=== PATIENT | female | born 1965 | race Caucasian/White ===

== ENCOUNTER 2016-05-07 09:32 | Day surgery (SDC) | payer MEDICAID, OTHER ==
[2016-05-06 11:51] VITALS: BMI 36.3
[2016-05-07] VITALS (8 sets, daily range): BP systolic 116–168; BP diastolic 70–96; PULSE 65–78; RESP 12–19; Ht 157.5 cm; Wt 92.3 kg
[~2016-05-07] VITALS: Ht 157.5 cm; Wt 92.3 kg
[~2016-05-07 09:32] MED LIST: ABCC1C PO; FERRIC SUBSULFATE 8 GM VIAL TOP ONE; LIDOCAINE 1%/EPI 30 ML INJ INJ ONE; ONDA4TAB35 PO
[2016-05-07] MEDS ORDERED: METO-429 PO (10:40)
[2016-05-07 11:42] LABS: BASOPHILS % 0.3 % (0.0-2.0); EOSINOPHILS # 0.2 10^3/ul (0.0-0.5); HEMATOCRIT 39.2 % (37.0-47.0); HEMOGLOBIN 12.9 g/dl (12.0-16.0); LYMPHOCYTES # 2.4 10^3/ul (0.8-2.9); LYMPHOCYTES % 28.8 % (15.0-51.0); MEAN CORPUSCULAR HEMOGLOBIN 26.9 pg (29.0-33.0); MEAN CORPUSCULAR HGB CONC 32.9 g/dl (32.0-37.0); MEAN CORPUSCULAR VOLUME 81.7 fl (82.0-101.0); MEAN PLATELET VOLUME 8.7 fl (7.4-10.4); MONOCYTE # 0.4 10^3/ul (0.3-0.9); MONOCYTES % 5.4 % (0.0-11.0); NEUTROPHIL # 5.3 10^3/ul (1.6-7.5); NEUTROPHILS % 63.5 % (39.0-77.0); PLATELET COUNT 314 10^3/UL (140-440); RED CELL DISTRIBUTION WIDTH 13.2 % (11.5-14.5); UNCORRECTED WBC 8.3 10^3/ul (4.8-10.8); WHITE BLOOD COUNT 8.3 10^3/ul (4.8-10.8)
[2016-05-07 11:47] LABS: CONDITION 1; LH ANALYZER COMMENTS 1
[2016-05-07 11:53] LABS: ALBUMIN/GLOBULIN RATIO 1.29; BILIRUBIN,INDIRECT 0.2 mg/dl (0-1.1); BILIRUBIN,TOTAL 0.2 mg/dl (0.2-1.3); CREATININE 0.64 mg/dl (0.44-1.00); TOTAL PROTEIN 7.1 g/dl (6.1-8.1)
[2016-05-07 12:01] LABS: CALCIUM 8.9 mg/dl (8.4-10.2)
[2016-05-07] MEDS ORDERED: LIDOCAINE 1%/EPI 30 ML INJ ONE (12:43)
[2016-05-07] MEDS ORDERED: LIDOCAINE 1% (STERILE-PAK) 30 ML INJ ONE ×2 (12:44→14:24)
--- NOTE | 2016-05-07 12:48 | PREOPHP ---
DATE OF ADMISSION: 05/07/2016 HISTORY OF PRESENT ILLNESS: A 51-year-old female with history of cervical dysplasia. PAST MEDICAL HISTORY: Hypertension and breast cancer. PAST SURGICAL HISTORY: section, mastectomy. ALLERGIES: NO KNOWN ALLERGIES. FAMILY HISTORY: Diabetes and hypertension. PHYSICAL EXAMINATION: VITAL SIGNS: The patient is afebrile. Vital signs stable. HEAD, NECK AND CHEST: Within normal limits. ABDOMEN: Soft, nontender, nondistended. PELVIC: Normal. EXTREMITIES: Within normal limits. NEUROLOGIC: Within normal limits. IMPRESSION: Cervical dysplasia. PLAN: Loop electrosurgical excision procedure. Risks, benefits and alternatives of the procedure w ere explained to the patient. The patient said she understood and gave informed consent for this pr ocedure. Dictated By: LUCERO NOBLE/THIERRY Conf#: [id number] DID#: [id number]
[2016-05-07] MEDS ORDERED: FENTAnyl 50 MCG/ML VIAL ONE (13:06)
[2016-05-07] MEDS ORDERED: FERRIC SUBSULFATE 8 GM VIAL TOP SCH (13:30)
[2016-05-07] MEDS ORDERED: LIDOCAINE 2% (SDV) 5 ML INJ ONE (14:03)
[2016-05-07] MEDS ORDERED: PROPOFOL 40 ML ONE (14:03)
[2016-05-07] MEDS ORDERED: SUCCINYLCHOLINE CHLORIDE 100 MG/5 ML SYG IV ONE (14:03)
--- NOTE | 2016-05-07 14:22 | OPR ---
DATE OF OPERATION: 05/07/2016 PREOPERATIVE DIAGNOSIS: Moderate cervical dysplasia. POSTOPERATIVE DIAGNOSIS: Moderate cervical dysplasia. OPERATION PERFORMED: Loop electrosurgical excision procedure. SURGEON: Dr. Guillen ANESTHESIA: General. ANESTHESIOLOGIST: Dr. Sean Obregon PROCEDURE: The patient was taken to the operating room and placed on the operating table in supine position. After adequate general anesthesia was given, the area was prepared and draped. The patie nt was placed in dorsal lithotomy position. The area was prepared and draped in the usual sterile f ashion. Speculum was placed inside the vagina. Using a solution of lidocaine with epinephrine, the cervix was injected. Using a semicircular loop, a portion of the upper cervix and lower cervix wer e excised and sent to pathology. A ball tip Bovie was used to cauterize the small bleeders. Surgic el soaked in Monsel solution was applied to the site. Adequate hemostasis was assured. The patient tolerated the procedure well. Patient was awakened from anesthesia and transferred to recovery in stable condition. ESTIMATED BLOOD LOSS: Minimal. COUNTS: All counts were correct. Dictated By: LUECRO NOBLE/THIERRY Conf#: [id number] DID#: [id number]
[2016-05-07] MEDS ORDERED: DIPHENHYDRAMINE 50 MG INJ IV PRN (14:30)
[2016-05-07] MEDS ORDERED: FENTAnyl 50 MCG/ML VIAL IV PRN ×2 (14:30)
[2016-05-07] MEDS ORDERED: MEPERIDINE 25 MG INJ IV PRN (14:30)
[2016-05-07] MEDS ORDERED: HYDROmorphONE (0.2 MG/ML) 10ML SYG IV PRN ×3 (14:30)
--- NOTE | 2016-05-08 15:55 | RADRPT ---
Vent Rate: 59 bpm RR Interval: 0 msec UT Interval: 142 msec QRS Duration: 82 msec QT Interval: 424 msec QTC Interval: 419 msec P-R-T [place]: 43 - 32 - 44 degrees Sinus bradycardia Abnormal ECG Electronically Signed By: Brendon Magana [id number]
== END 2016-05-07 17:15 | disposition home or self-care (01) ==
LOC: SDS 09:32
PROVIDERS: ATTEND Obstetrics & Gynecology
DX: N87.1 Moderate cervical dysplasia (principal); I10 Essential (primary) hypertension; E78.5 Hyperlipidemia, unspecified; E66.01 Morbid (severe) obesity due to excess calories; Z68.37 Body mass index [BMI] 37.0-37.9, adult; Z85.3 Personal history of malignant neoplasm of breast; Z83.3 Family history of diabetes mellitus; Z82.49 Family history of ischemic heart disease and other diseases of the circulatory system
CPT/HCPCS: 57522; 80053; 84703; 85025; 86850; 86900; 86901; 88305; 93005; J0330; J3010; Z7512; Z7610

== ENCOUNTER 2016-08-22 05:48 | Inpatient (IN) | payer OTHER ==
[2016-08-21 15:04] VITALS: BMI 37.1
[2016-08-22] VITALS (23 sets, daily range): BP systolic 96–145; BP diastolic 59–75; PULSE 56–97; RESP 12–18; Ht 157.5 cm; Wt 90.5 kg
[~2016-08-22] VITALS: Ht 157.5 cm; Wt 90.5 kg
[~2016-08-22 05:48] MED LIST changes: -ABCC1C PO; -FERRIC SUBSULFATE 8 GM VIAL TOP ONE; -LIDOCAINE 1%/EPI 30 ML INJ INJ ONE; +METO-429 PO; +NOL20 PO; -ONDA4TAB35 PO
[2016-08-22] MEDS ORDERED: CEFAZOLIN 2 GM/50 ML (PMX) 50 ML IVPB ONE (06:00)
[2016-08-22] MEDS ORDERED: metroNIDAZOLE 500 MG/NS (PMX) 100 ML IVPB ONE (06:00)
[2016-08-22] MEDS ORDERED: D5-NS + KCL 20 MEQ 1,000 ML IV ONE (06:00)
[2016-08-22] MEDS ORDERED: CEFAZOLIN 1 GM INJ ONE (07:00)
[2016-08-22] MEDS ORDERED: metroNIDAZOLE 500 MG/100 ML NS IVPB ONE (07:00)
[2016-08-22] MEDS ORDERED: THROMBIN 5000 UNIT VIAL ONE (07:07)
[2016-08-22] MEDS ORDERED: VASOPRESSIN 20 UNITS INJ ONE (07:07)
[2016-08-22] MEDS ORDERED: METHYLENE BLUE 1% 10 ML INJ ONE (07:07)
[2016-08-22] MEDS ORDERED: PROPOFOL 20 ML ONE (07:42)
[2016-08-22] MEDS ORDERED: NEOSTIGMINE 3 MG/3 ML SYRINGE ONE ×2 (07:42→07:47)
[2016-08-22] MEDS ORDERED: LIDOCAINE 2% (SDV) 5 ML INJ ONE (07:42)
[2016-08-22] MEDS ORDERED: SUCCINYLCHOLINE CHLORIDE 100 MG/5 ML SYG IV ONE (07:42)
[2016-08-22] MEDS ORDERED: GLYCOPYRROLATE 0.4 MG INJ ONE ×3 (07:42→07:47)
[2016-08-22] MEDS ORDERED: ROCURONIUM 50 MG INJ ONE ×2 (07:42→09:19)
[2016-08-22] MEDS ORDERED: morphine SULFATE/PF (10 MG/10 ML) INJ ONE (07:46)
[2016-08-22] MEDS ORDERED: METOCLOPRAMIDE 10 MG INJ ONE (07:47)
[2016-08-22] MEDS ORDERED: ONDANSETRON 4 MG INJ ONE (07:47)
--- NOTE | 2016-08-22 08:13 | HP ---
Date/Time of Note Date/Time of Note DATE: 08/22/16 TIME: 08:13 Assessment/Plan VTE Prophylaxis VTE Prophylaxis Intervention: SCD's Lines/Catheters [facility] Peripheral IV HPI/ROS Admit Date/Time Admit Date/Time Aug 22, 2016 at 05:48 Hx of Present Illness Marilee Tolbert M.D. [facility] History and Physical Examination Mikki Leblanc August 18, 2016 Age:51 :1965 Physicians: Pattern Marking Supervisor Enrollment Nurse: Frank Guillen History of the Present Illness: This is a 51 year old female with an abnormal PAP with HGSIL and a hx breast cancer. Past Medical History: Surgical: Breast cancer, [facility]: NA Medications: 07/18/16 metoprolol tartrate 50 mg tablet 1 tablet by mouth BID 07/18/16 tamoxifen 20 mg tablet 1 tablet by mouth DAILY gardisil Allergies: No active allergies recorded Family History: Noncontributory Social History: Noncontributory Colonoscopy Review of Systems: Negative except for above noted Physical Examination Vitals (07/18/2016): Weight 202, Height 61.75, BP 120/80, BMI 38.2. General: Alert. HEENT: Pupils are equal, round, reactive to light and accommodation. Neck: Supple with no masses of lymphadenopathy. Breast: Deferred due to recent examination and responsibility of primary care physician. Chest: Clear to auscultation and percussion with no rales, ronchi, or wheeze. Heart: Normal rhythm with no murmur. Abdomen: no masses nor organomeglay Pelvis: On coloposcopy no gross cancer although cx flat/confluent with vagina ( due to cone), uterus minimally enlarged and globular, no mass. Rectal: confirmatory with pelvic exam. Neurological: Grossly intact Assessment: JUNE II-III with anatomy precluding LEEP or cone Plan:Laparoscopic Type 2 Hysterectomy, Bilateral Salpingo-Oophorectomy, Sentinal Lymphnode Dissection. All risks and benefits of this procedure have been discussed in detail with the patient, as well as alternative treatment strategies and their implications. The patient is aware that there is some possibility of a blood transfusion and its associated risks and benefits. She wishes to proceed and gives her informed consent. Marilee Tolbert M.D. PMH/Family/Social Social History Smoking Status: Former smoker Exam/Review of Systems Vital Signs Vitals Vital Signs Date Time Temp Pulse Resp B/P Pulse Ox O2 Delivery O2 Flow Rate FiO2 08/22/16 07:34 98.3 61 16 135/74 98 Medications Medications Current Medications Potassium Chloride/Dextrose/ Sod Cl (D5-NS + KCl 20 Meq) 1,000 ml @ 100 mls/hr Q10H ONCE IV ; Start 08/22/16 at 06:00; Stop 08/22/16 at 15:59 MARILEE TOLBERT MD Aug 22, 2016 08:13
--- NOTE | 2016-08-22 08:14 | HPN ---
Date/Time of Note Date/Time of Note DATE: 08/22/16 TIME: 08:14 Interval H&P Admission Note Pt. seen H&P reviewed: No system changes MARILEE TOLBERT MD Aug 22, 2016 08:14
[2016-08-22] MEDS ORDERED: CEFAZOLIN 1 GM in SOD CHLORIDE 0.9% 100 ML IVPB SCH (08:30)
[2016-08-22] MEDS ORDERED: ONDANSETRON 4 MG INJ IV PRN ×2 (09:00→13:00)
[2016-08-22] MEDS ORDERED: morphine 10 MG INJ IM PRN (09:00)
[2016-08-22] MEDS ORDERED: POTASSIUM CHLORIDE 20 MEQ in LACTATED RINGER'S 1,000 ML IV SCH (09:30)
[2016-08-22] MEDS ORDERED: hydrALAzine 20 MG INJ ONE (09:32)
[2016-08-22] MEDS ORDERED: FENTAnyl 50 MCG/ML VIAL ONE (12:46)
[2016-08-22 12:56] LABS: ADD UMIC YES; URINE BILIRUBIN (Dip) NEGATIVE (NEGATIVE); URINE BLOOD (Dip) 3+ (NEGATIVE); URINE COLOR LT. RED (YELLOW); URINE GLUCOSE (Dip) NEGATIVE (NEGATIVE); URINE KETONES (Dip) 15 (NEGATIVE); URINE LEUKOCYTE ESTERASE (Dip) NEGATIVE (NEGATIVE); URINE NITRITE (Dip) NEGATIVE (NEGATIVE); URINE TOTAL PROTEIN (Dip) 2+ (NEGATIVE); URINE UROBILINOGEN (Dip) 0.2 E.U./dL (0.1-1.0)
[2016-08-22] MEDS ORDERED: EPHEDrine SULFATE 50 MG/5 ML SYG IV PRN (13:00)
[2016-08-22] MEDS ORDERED: KETOROLAC 30 MG INJ IV PRN (13:00)
[2016-08-22] MEDS ORDERED: FENTAnyl 50 MCG/ML VIAL IV PRN (13:00)
[2016-08-22] MEDS ORDERED: morphine 2 MG INJ IV PRN ×2 (13:00)
[2016-08-22] MEDS ORDERED: DIPHENHYDRAMINE 50 MG INJ IV PRN (13:00)
[2016-08-22] MEDS ORDERED: morphine SULFATE/PF (10 MG/10 ML) INJ SPINAL ONE (13:00)
[2016-08-22] MEDS ORDERED: NALOXONE (0.4 MG/ML) INJ IV PRN (13:00)
[2016-08-22] MEDS ORDERED: HYDROmorphONE 1 MG/ML SYG IV PRN ×2 (13:00)
[2016-08-22] MEDS: FENTAnyl 50 MCG/ML VIAL IV PRN ×2 (13:19→13:47)
[2016-08-22 13:23] LABS: BACTERIA,URINE FEW; URINE RBCS >200 /HPF (0)
[2016-08-22] MEDS: CEFAZOLIN 1 GM/50 ML (PMX) 50 ML IVPB SCH ×3 (16:30→23:54)
--- NOTE | 2016-08-22 18:42 | CONS ---
DATE OF ADMISSION: 08/22/2016 DATE OF CONSULTATION: 08/22/2016 CHIEF COMPLAINT AND HISTORY OF PRESENT ILLNESS: The patient is a 51-year-old female with a history of hypertension, breast cancer, cervical dysphagia status post LEEP procedure back in 04/[address] Belkis Guillen. The patient subsequently was referred to Dr. Hawkins for further evaluation. Patient w as brought into the hospital today and underwent laparoscopic hysterectomy and bilateral salpingo-oo phorectomy and sentinel lymph node dissection. Patient does have some postoperative pain. The sheryl ent's postoperative pain is being controlled with IV Toradol and IV morphine. The patient denies an y chest pain or shortness of breath. The patient remains awake, alert, and is moving all extremitie s. No vomiting since admission. REVIEW OF SYSTEMS: Negative except for postoperative pain. PAST SURGICAL HISTORY: Patient is status post mastectomy. Patient also status post , LEEP procedure and today she underwent a laparoscopic hysterectomy and bilateral salpingo-oophorectomy. ALLERGIES: NONE. MEDICATIONS PRIOR TO ADMISSION: The patient was on: 1. Tamoxifen. 2. Metoprolol. FAMILY HISTORY: The patient's maternal grandmother as well as a maternal aunt and cousin, all of th em have ovarian cancer, details not available. PHYSICAL EXAMINATION: GENERAL: The patient is conscious, awake, alert. VITAL SIGNS: Temperature 97.5, pulse 65, respirations 18, blood pressure 135/84, O2 saturation 100% on 2 liters nasal cannula. HEENT: No eye discharge or redness. Extraocular movement intact. Oropharynx clear. NECK: No mass. CHEST: Fairly clear. CARDIOVASCULAR: S1, S2 normal. No murmur. ABDOMEN: The patient is status post surgery. EXTREMITIES: No edema. Pedal pulses palpable. SKIN: Without acute rash. NEUROLOGIC: The patient is awake, alert, fairly oriented with no gross focal deficit. ____ examinat ion was deferred due to recent surgery. LABORATORY DATA: Urine test negative. WBC 7.2, hemoglobin 12.7, platelet 278. Sodium 14 1, potassium 4.4, BUN 8, creatinine 0.6, glucose 103. Coagulation profile normal. IMPRESSION: 1. Cervical dysplasia. 2. 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 3. Hypertension. 4. History of breast cancer. PLAN: Patient admitted on medical floor. Patient will be started on clear liquid diet and will con tinue with IV cefazolin as per protocol. Continue postoperative pain control, IV fluids and will us e SCD for DVT prophylaxis, will resume home medication. Plan of care discussed with the patient's f venkaty. Dictated By: LM MENJIVAR/THIERRY Conf#: [id number] DID#: [id number]
[2016-08-22] MEDS: METOPROLOL 50 MG TAB PO SCH (20:56)
[2016-08-22] MEDS: TAMOXIFEN 10 MG TAB PO SCH (21:40)
[2016-08-23 00:01] VITALS: BP 106/59; PULSE 78; RESP 18
[2016-08-23 06:12] LABS: ADD SCAN DIFF NO
[2016-08-23 06:18] LABS: BASOPHILS % 0.2 % (0.0-2.0); EOSINOPHILS # 0.1 10^3/ul (0.0-0.5); EOSINOPHILS % 1.1 % (0.0-7.0); HEMATOCRIT 33.1 % (37.0-47.0); HEMOGLOBIN 10.4 g/dl (12.0-16.0); LYMPHOCYTES # 2.8 10^3/ul (0.8-2.9); LYMPHOCYTES % 31.6 % (15.0-51.0); MEAN CORPUSCULAR HEMOGLOBIN 25.9 pg (29.0-33.0); MEAN CORPUSCULAR HGB CONC 31.4 g/dl (32.0-37.0); MEAN CORPUSCULAR VOLUME 82.5 fl (82.0-101.0); MEAN PLATELET VOLUME 10.6 fl (7.4-10.4); MONOCYTE # 0.6 10^3/ul (0.3-0.9); MONOCYTES % 6.5 % (0.0-11.0); NEUTROPHIL # 5.3 10^3/ul (1.6-7.5); NEUTROPHILS % 60.3 % (39.0-77.0); PLATELET COUNT 200 10^3/UL (140-415); RED BLOOD COUNT 4.01 10^6/ul (4.20-5.40); RED CELL DISTRIBUTION WIDTH 14.1 % (11.5-14.5); WHITE BLOOD COUNT 8.8 10^3/ul (4.8-10.8)
[2016-08-23 06:47] LABS: CALCIUM 7.9 mg/dl (8.4-10.2); CREATININE 0.73 mg/dl (0.44-1.00); POTASSIUM 4.1 mmol/L (3.5-5.1)
[2016-08-23 08:21] VITALS: BP 97/59; RESP 18
[2016-08-23] MEDS: METOPROLOL 50 MG TAB PO SCH (08:24)
[2016-08-23 08:25] VITALS: BP 93/66; PULSE 68
[2016-08-23] MEDS ORDERED: TAMOXIFEN 10 MG TAB PO SCH (09:00)
--- NOTE | 2016-08-23 17:24 | PN ---
Date/Time of Note Date/Time of Note DATE: 08/23/16 TIME: 17:20 Assessment/Plan VTE Prophylaxis VTE Prophylaxis Intervention: SCD's Lines/Catheters IV Catheter Type (from Nrs): Saline Lock Urinary Cath still in place: Yes Reason Cath still needed: urinary retention Assessment/Plan Chief Complaint/Hosp Course Patient denies any nausea vomiting, still complains of postoperative pain, borderline hypotension, parameters for metoprolol given Problems: Assessment/Plan 1. Cervical dysplasia. 2. 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 Continue Ultram and morphine as needed for pain. Follow-up surgical recommendations. Incentive spirometer every hour while awake. 3. Hypertension. Patient is currently hypotensive. 4. History of breast cancer. Further recommendations based on clinical course. Plan of care discussed with Dr. Malik. Exam/Review of Systems Vital Signs Vitals Vital Signs Date Time Temp Pulse Resp B/P Pulse Ox O2 Delivery O2 Flow Rate FiO2 08/23/16 08:25 68 93/66 08/23/16 08:21 98.9 18 96 08/23/16 00:01 Room Air 08/22/16 19:00 2.0 Intake and Output 08/22/16 08/22/16 08/23/16 14:59 22:59 06:59 Intake Total 3100 ml 530 ml 1350 ml Output Total 700 ml 1200 ml 2600 ml Balance 2400 ml -670 ml -1250 ml Exam Constitutional: alert, oriented Head: atraumatic, normocephalic Neck: supple Respiratory: clear to auscultation Cardiovascular: nl pulses Genitourinary - Female: other (This post surgery) Extremities: normal pulses Results Result Diagram: 08/23/16 0530 08/23/16 0535 Results 24 hrs Laboratory Tests Test 08/23/16 05:30 08/23/16 05:35 08/23/16 05:37 White Blood Count 8.8 Red Blood Count 4.01 L Hemoglobin 10.4 L Hematocrit 33.1 L Mean Corpuscular Volume 82.5 Mean Corpuscular Hemoglobin 25.9 L Mean Corpuscular Hemoglobin Concent 31.4 L Red Cell Distribution Width 14.1 Platelet Count 200 Mean Platelet Volume 10.6 #H Neutrophils % 60.3 Lymphocytes % 31.6 Monocytes % 6.5 Eosinophils % 1.1 Basophils % 0.2 Nucleated Red Blood Cells % 0.0 Neutrophils # 5.3 Lymphocytes # 2.8 Monocytes # 0.6 Eosinophils # 0.1 Basophils # 0.0 Nucleated Red Blood Cells # 0.0 Sodium Level 143 Potassium Level 4.1 Chloride Level 111 H Carbon Dioxide Level 26 Anion Gap 10 Blood Urea Nitrogen 4 L Creatinine 0.73 Glucose Level 121 Calcium Level 7.9 L Lab Scanned Report REFERENCE LAB Medications Medications Current Medications Ondansetron HCl (Zofran Inj) 4 mg Q6H PRN IV NAUSEA AND/OR VOMITING; Start 08/22 at 09:00 Tramadol HCl (Ultram) 50 mg Q6H PRN PO PAIN; Start 08/22/16 at 09:00 Morphine Sulfate (morphine) 2 mg Q4H PRN IM pain; Start 08/22/16 at 09:00 Tamoxifen Citrate (Nolvadex) 20 mg HS PO Last administered on 08/22/16t 21:40; Admin Dose 20 MG; Start 08/22/16 at 21:00 Metoprolol Tartrate (Lopressor) 25 mg BID PO ; Start 08/23/16 at 21:00 CHIOMA LAGUERRE Aug 23, 2016 17:24
[2016-08-23] MEDS: traMADol 50 MG TAB PO PRN (17:52)
[2016-08-23 20:14] VITALS: BP 132/70; RESP 20
[2016-08-23] MEDS: METOPROLOL 25 MG TAB PO SCH (21:01)
[2016-08-23] MEDS: TAMOXIFEN 10 MG TAB PO SCH (21:08)
[2016-08-24] MEDS: traMADol 50 MG TAB PO PRN ×2 (05:51→16:55)
[2016-08-24 06:06] LABS: ADD SCAN DIFF NO
[2016-08-24 06:27] LABS: BASOPHILS % 0.3 % (0.0-2.0); EOSINOPHILS # 0.4 10^3/ul (0.0-0.5); EOSINOPHILS % 4.7 % (0.0-7.0); HEMATOCRIT 34.4 % (37.0-47.0); HEMOGLOBIN 10.9 g/dl (12.0-16.0); LYMPHOCYTES # 2.7 10^3/ul (0.8-2.9); MEAN CORPUSCULAR HEMOGLOBIN 25.9 pg (29.0-33.0); MEAN CORPUSCULAR HGB CONC 31.7 g/dl (32.0-37.0); MEAN CORPUSCULAR VOLUME 81.7 fl (82.0-101.0); MEAN PLATELET VOLUME 10.2 fl (7.4-10.4); MONOCYTE # 0.5 10^3/ul (0.3-0.9); MONOCYTES % 6.4 % (0.0-11.0); NEUTROPHIL # 3.8 10^3/ul (1.6-7.5); NEUTROPHILS % 51.3 % (39.0-77.0); PLATELET COUNT 198 10^3/UL (140-415); RED BLOOD COUNT 4.21 10^6/ul (4.20-5.40); RED CELL DISTRIBUTION WIDTH 14.1 % (11.5-14.5); WHITE BLOOD COUNT 7.4 10^3/ul (4.8-10.8)
[2016-08-24 07:19] LABS: CREATININE 0.72 mg/dl (0.44-1.00); POTASSIUM 3.5 mmol/L (3.5-5.1)
[2016-08-24 07:26] VITALS: BP 118/64; RESP 18
[2016-08-24] MEDS: METOPROLOL 25 MG TAB PO SCH (08:18)
--- NOTE | 2016-08-24 11:36 | PN ---
Date/Time of Note Date/Time of Note DATE: 08/24/16 TIME: 11:36 Assessment/Plan VTE Prophylaxis VTE Prophylaxis Intervention: other Lines/Catheters IV Catheter Type (from Nrs): Saline Lock Urinary Cath still in place: Yes Reason Cath still needed: skin wounds contaminated by urine Assessment/Plan Chief Complaint/Hosp Course 1. Cervical dysplasia. 2. 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 Continue Ultram and morphine as needed for pain. Follow-up surgical recommendations. Incentive spirometer every hour while awake. 3. Hypertension. Patient is currently hypotensive. 4. History of breast cancer. Problems: Subjective 24 Hr Interval Summary Free Text/Dictation Patient has no complaints Exam/Review of Systems Vital Signs Vitals Vital Signs Date Time Temp Pulse Resp B/P Pulse Ox O2 Delivery O2 Flow Rate FiO2 08/24/16 07:26 98.5 77 18 118/64 97 08/23/16 00:01 Room Air 08/22/16 19:00 2.0 Intake and Output 08/23/16 08/23/16 08/24/16 15:00 23:00 07:00 Intake Total 1360 ml 360 ml Output Total 1100 ml 1260 ml Balance 260 ml -900 ml Exam Constitutional: well developed Head: atraumatic, normocephalic Neck: supple Respiratory: clear to auscultation Cardiovascular: regular rate and rhythm Gastrointestinal: soft, tender Extremities: normal pulses Results Result Diagram: 08/24/16 0544 08/24/16 0544 Results 24 hrs Laboratory Tests Test 08/24/16 05:44 White Blood Count 7.4 Red Blood Count 4.21 Hemoglobin 10.9 L Hematocrit 34.4 L Mean Corpuscular Volume 81.7 L Mean Corpuscular Hemoglobin 25.9 L Mean Corpuscular Hemoglobin Concent 31.7 L Red Cell Distribution Width 14.1 Platelet Count 198 Mean Platelet Volume 10.2 Neutrophils % 51.3 Lymphocytes % 37.0 Monocytes % 6.4 Eosinophils % 4.7 Basophils % 0.3 Nucleated Red Blood Cells % 0.0 Neutrophils # 3.8 Lymphocytes # 2.7 Monocytes # 0.5 Eosinophils # 0.4 Basophils # 0.0 Nucleated Red Blood Cells # 0.0 Sodium Level 145 H Potassium Level 3.5 Chloride Level 112 H Carbon Dioxide Level 27 Anion Gap 10 Blood Urea Nitrogen 5 L Creatinine 0.72 Glucose Level 91 Calcium Level 8.0 L Medications Medications Current Medications Ondansetron HCl (Zofran Inj) 4 mg Q6H PRN IV NAUSEA AND/OR VOMITING Last administered on 08/24/16 09:51; Admin Dose 4 MG; Start 08/22/16 at 09:00 Tramadol HCl (Ultram) 50 mg Q6H PRN PO PAIN Last administered on 08/24/16 05: 51; Admin Dose 50 MG; Start 08/22/16 at 09:00 Morphine Sulfate (morphine) 2 mg Q4H PRN IM pain Last administered on 08:15; Admin Dose 2 MG; Start 08/22/16 at 09:00 Tamoxifen Citrate (Nolvadex) 20 mg HS PO Last administered on 08/23/16 21:08; Admin Dose 20 MG; Start 08/22/16 at 21:00 Metoprolol Tartrate (Lopressor) 25 mg BID PO Last administered on 08/24/16 08: 18; Admin Dose 25 MG; Start 08/23/16 at 21:00 ABI MAI Aug 24, 2016 11:36
--- NOTE | 2016-08-24 14:47 | PN ---
Date/Time of Note Date/Time of Note DATE: 08/24/16 TIME: 14:44 Assessment/Plan VTE Prophylaxis VTE Prophylaxis Intervention: SCD's Lines/Catheters IV Catheter Type (from Nrs): Saline Lock Urinary Cath still in place: Yes Reason Cath still needed: urinary retention Assessment/Plan Chief Complaint/Hosp Course cervical JUNE III and endometrial hyperplasia Problems: Assessment/Plan A- doing well P- possible discharge today Subjective 24 Hr Interval Summary Free Text/Dictation + flatus and less pain. Exam/Review of Systems Vital Signs Vitals Vital Signs Date Time Temp Pulse Resp B/P Pulse Ox O2 Delivery O2 Flow Rate FiO2 08/24/16 07:26 98.5 77 18 118/64 97 08/23/16 00:01 Room Air 08/22/16 19:00 2.0 Intake and Output 08/23/16 08/23/16 08/24/16 15:00 23:00 07:00 Intake Total 1360 ml 360 ml Output Total 1100 ml 1260 ml Balance 260 ml -900 ml Exam Resp -clear CVS- NSR And- soft nt and clean Ext- NT no edema Results Result Diagram: 08/24/16 0544 08/24/16 0544 Results 24 hrs Laboratory Tests Test 08/24/16 05:44 White Blood Count 7.4 Red Blood Count 4.21 Hemoglobin 10.9 L Hematocrit 34.4 L Mean Corpuscular Volume 81.7 L Mean Corpuscular Hemoglobin 25.9 L Mean Corpuscular Hemoglobin Concent 31.7 L Red Cell Distribution Width 14.1 Platelet Count 198 Mean Platelet Volume 10.2 Neutrophils % 51.3 Lymphocytes % 37.0 Monocytes % 6.4 Eosinophils % 4.7 Basophils % 0.3 Nucleated Red Blood Cells % 0.0 Neutrophils # 3.8 Lymphocytes # 2.7 Monocytes # 0.5 Eosinophils # 0.4 Basophils # 0.0 Nucleated Red Blood Cells # 0.0 Sodium Level 145 H Potassium Level 3.5 Chloride Level 112 H Carbon Dioxide Level 27 Anion Gap 10 Blood Urea Nitrogen 5 L Creatinine 0.72 Glucose Level 91 Calcium Level 8.0 L Medications Medications Current Medications Ondansetron HCl (Zofran Inj) 4 mg Q6H PRN IV NAUSEA AND/OR VOMITING Last administered on 08/24/16t 09:51; Admin Dose 4 MG; Start 08/22/16 at 09:00 Tramadol HCl (Ultram) 50 mg Q6H PRN PO PAIN Last administered on 08/24/16 05: 51; Admin Dose 50 MG; Start 08/22/16 at 09:00 Tamoxifen Citrate (Nolvadex) 20 mg HS PO Last administered on 08/23/16 21:08; Admin Dose 20 MG; Start 08/22/16 at 21:00 Metoprolol Tartrate (Lopressor) 25 mg BID PO Last administered on 08/24/16 08: 18; Admin Dose 25 MG; Start 08/23/16 at 21:00 MARILEE TOLBERT MD Aug 24, 2016 14:47
--- NOTE | 2016-08-25 18:08 | OPR ---
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 Laparoscopic Type 2 Hysterectomy / Bilateral salpingoophorectomy 2. [place]/selective pelvic lymph node dissection 3. Cystoscopy with bilateral stenting 4. Ureteral dissection and ureterolysis Surgeon: Dr. Hawkins Assemblies And Installations Inspector: FAHEEM Leonard Anesthesia: General with regional Indications for Procedure; The patient is a 51- year old female with PMB and pain who had a prior cone with a preinvasive finding. She the had repeat JUNE III with a positive ECC and a repeat LEEP was not anatomically possible. Hence after considering all options with risks and benefits the Laparoscopic Type 2 Hysterectomy with Bilateral salpingoophorectomy with sentinel/selective LND was selected. Summary of Procedure: The patient was laparoscoped with the finding of some adhesions and the adnexia densely adherent to the sidewalls and some fibroids and probable endometriosis. The Laparoscopic Type 2 Hysterectomy with Bilateral salpingoophorectomy with Name: Mikki Leblanc Medical sentinel/selective LND was completed with negative findings on frozen section. Due to the probable endometriosis a ureteral dissection with repositioning was needed and due to the extent of scar tissue both were stented prophylactically. Findings and Procedure: After being prepped and draped in the usual manner a EEA sizer and pneumo- occluder was inserted vaginally after which a 5-millimeter trocar was placed cephlad to the umbilicus without incident. Subsequently, we insufflated and placed two 5- millimeter trocars laterally and a 12-millimeter trocar suprapubically. At this time, the 0-degree 5-millimeter laparoscopic was secured and manipulated with a Scope manipulator and any pelvic adhesions were lysed with sharp dissection. The uterus was manipulated with a previously placed EEA sizer and fan retractor. There was no apparent extra-uterine disease. A baby-lap was placed and a ratcheted endo-grasper was inserted via the suprapubic trocar and used to manipulate the uterus while being secured with a Erich-arm, after which the right round ligament was transected with a Thunderbeat. The bladder flap was then developed with a Gyrus bipolar cutting forceps instrument as well as Omni and blunt dissection. The retroperitoneal area was opened with the Omni parallel to the IP-ligament and the ureter was identified. Due to both unusual scarring with a suggestion of severe pelvic endometriosis and inflammation from a prior procedure and the uterine enlargement as well as the need to isolate the uterine artery the ureter was dissected with the Omni and lateralized, after which normal peristalsis was observed. Of note, the aforementioned inflammation as well as adnexia adherent to the sidewall necessitated that the ureteral dissection with repositioning being more extensive than anticipated but this was completed without incident. After repositioning the ureter laterally away from the peritoneum, the tereso-rectal and tereso-vessicle space was developed bluntly, after which a space was applied to the right broad ligament and the right IP-ligament was cauterized and transected with the Thunderbeat and Omni. We then repositioned the uterus with the ratcheted endo-grasper and with a Erich arm. With both the aforementioned ureter identified and traced out the uterine vessels were thoroughly dissected separately identified, clipped multiple areas, and cut. The ureter was then tunneled through the parametria with an endo dissector, and the Name: [facility] parametrial pedicle cauterized remote from the ureters and transected with the Thunderbeat. An identical procedure was used to transect the uterosacral ligaments an appropriate distance from the cervix with the Omni and Thunderbeat. Any bleeding areas were addressed with additional cautery using the the Omni. The bladder pillar was then dissected and clipped and desiccated and transected, after which the ureters was confirmed to be undamaged. At this time the uterine positioning adjusted with the ratcheted endo -grasper and secured with the lower Erich-arm and the contralateral retroperitoneal area opened with the Omni and the adjacent round ligament cauterized and transected with the Gyrus bipolar cutting forceps. The retroperitoneal space was opened with the Omni and extended. The retroperitoneal area was further opened with the Omni parallel to the IP- ligament and the ureter was identified. Due to similar scarring and inflammation from the prior procedure as noted contralaterally with hypervascularity as well as uterine enlargement and the need to isolate the uterine artery the ureter was dissected with the Omni and lateralized, after which normal peristalsis was observed. Of note, the aforementioned inflammation as well as adnexia adherent to the sidewall with a suggestion of dense adhesions due to old endometriosis necessitated that the ureteral dissection with repositioning be more extensive than anticipated but this was completed without incident. After repositioning the ureter laterally away from the peritoneum, the tereso-rectal and tereso-vessicle space was developed bluntly, after which a space was applied to the left broad ligament and the left IP- ligament was cauterized and transected with the Thunderbeat. We then repositioned the uterus with the ratcheted endo-grasper with a Erich Arm retractor. With both the aforementioned ureter identified and traced out the left uterine vessels were thoroughly dissected separately identified, clipped multiple areas, and cut. The ureter was then tunneled through the parametria with an endo dissector, and the parametrial pedicle cauterized remote from the ureters and transected with the Omni and Thunderbeat. An identical procedure was used to transect the uterosacral ligaments an appropriate distance from the with the Omni. Any bleeding areas were addressed with additional cautery using the Omni. The bladder pillar was then dissected and clipped and desiccated and transected as done contralaterally, after which the ureters was confirmed to be undamaged. Subsequently, additional Name: [facility] paravaginal tissue was transected with the Omni and the uterus and cervix from the vagina by using a Thunderbeat and Omni along the edge of the EEA sizer. Colpotomies were made posterior and anterior and extended. The uterus was removed from below and the vagina closed with interrupted figure of eight sutures using 2-0-vicryl and continuous 2-0 v-lock. After confirming hemostasis a fan retractor was placed and secured with the Erich Arm retractor on the right and a Microstim scope-kaplan was used to secure the laparoscope and adjusted as needed after which the nodes noted to be in the hypogastric area and obturator area on the right retroperitoneal area were dissected with the Omni and Gyrus bipolar cutting forceps for hemostasis and lymphostasis. The dissection included the use of the instruments for traction and counter traction and the obturator nerve was identified in the process. Subsequently exposure was modified and nodes noted to be equivalent on the left retroperitoneal area were dissected with the Omni and Gyrus bipolar cutting forceps for hemostasis and lymphostasis similar to contralaterally with technique. The dissection included the use of the instruments for traction and counter traction and the obturator nerve was identified in the process. After irrigating and assuring hemostasis all 12 millimeter trocar fascia were removed and the fascia was closed with 0-vicryl using with endo-close devise. The gas was removed and the skin of all sites then closed with 5-0 Plain gut suture. The EBL was 75 ml and the patient tolerated the procedure well and left the OR in good condition. Due to extensive ureteral dissection with repositioning and ureterolysis as a precaution both ureters were stented prophylactically. As a urologist was not available I was approved and on the right a 22 cm 6Fr and on the left a 24 cm 6Fr was placed without incident. Marilee Hawkins M.D. MARILEE HAWKINS MD Aug 25, 2016 18:08
--- NOTE | 2016-08-28 12:26 | DS ---
Date/Time of Note Date/Time of Note DATE: 08/28/16 TIME: 12:25 Discharge Summary Admission/Discharge Info Admit Date/Time Aug 22, 2016 at 05:48 Discharge Date/Time Aug 24, 2016 at 20:00 Final Diagnosis 1. Cervical dysplasia. 2. 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 Continue Ultram and morphine as needed for pain. Follow-up surgical recommendations. Incentive spirometer every hour while awake. 3. Hypertension. Patient is currently hypotensive. 4. History of breast cancer. Hx of Present Illness Felipe Hawkins M.D. [facility] History and Physical Examination Mikki Leblanc August 18, 2016 Age:51 :1965 Physicians: Radio/Tv Technician Tablet Technician: Frank Guillen History of the Present Illness: This is a 51 year old female with an abnormal PAP with HGSIL and a hx breast cancer. Past Medical History: Surgical: Breast cancer, [facility] Medical: NA Medications: 07/18/16 metoprolol tartrate 50 mg tablet 1 tablet by mouth BID 07/18/16 tamoxifen 20 mg tablet 1 tablet by mouth DAILY gardisil Allergies: No active allergies recorded Family History: Noncontributory Social History: Noncontributory Colonoscopy Review of Systems: Negative except for above noted Physical Examination Vitals (07/18/2016): Weight 202, Height 61.75, BP 120/80, BMI 38.2. General: Alert. HEENT: Pupils are equal, round, reactive to light and accommodation. Neck: Supple with no masses of lymphadenopathy. Breast: Deferred due to recent examination and responsibility of primary care physician. Chest: Clear to auscultation and percussion with no rales, ronchi, or wheeze. Heart: Normal rhythm with no murmur. Abdomen: no masses nor organomeglay Pelvis: On coloposcopy no gross cancer although cx flat/confluent with vagina ( due to cone), uterus minimally enlarged and globular, no mass. Rectal: confirmatory with pelvic exam. Neurological: Grossly intact Assessment: JUNE II-III with anatomy precluding LEEP or cone Plan:Laparoscopic Type 2 Hysterectomy, Bilateral Salpingo-Oophorectomy, Sentinal Lymphnode Dissection. All risks and benefits of this procedure have been discussed in detail with the patient, as well as alternative treatment strategies and their implications. The patient is aware that there is some possibility of a blood transfusion and its associated risks and benefits. She wishes to proceed and gives her informed consent. Felipe Hawkins M.D. Hospital Course Patient came in with cervical JUNE III and endometrial hyperplasia. Patient underwent removal per gynecology. Patient tolerated the procedure and went felt to be stable, patient was sent home. Home Meds Reported Medications Tamoxifen Citrate* (Tamoxifen Citrate*) 20 Mg Tab, 20 MG PO DAILY, TAB 08/21/16 Metoprolol Tartrate* (Lopressor*) 50 Mg Tab, 50 MG PO BID, #60 TAB 05/07/16 Primary Care Provider Care Physician ABI Lomeli Aug 28, 2016 12:26
== END 2016-08-24 20:00 | disposition home or self-care (01) | DRG 741 ==
LOC: REC 05:48 → MS2 17:50
PROC: 0UTC7ZZ Resection of Cervix, Via Natural or Artificial Opening (ICD-10-PCS; 2016-08-22)
PROC: 0UT2FZZ Resection of Bilateral Ovaries, Via Natural or Artificial Opening With Percutaneous Endoscopic Assistance (ICD-10-PCS; 2016-08-22)
PROC: 0UT7FZZ Resection of Bilateral Fallopian Tubes, Via Natural or Artificial Opening With Percutaneous Endoscopic Assistance (ICD-10-PCS; 2016-08-22)
PROC: 07BC4ZZ Excision of Pelvis Lymphatic, Percutaneous Endoscopic Approach (ICD-10-PCS; 2016-08-22)
PROC: 0TS84ZZ Reposition Bilateral Ureters, Percutaneous Endoscopic Approach (ICD-10-PCS; 2016-08-22)
PROC: 0T788DZ Dilation of Bilateral Ureters with Intraluminal Device, Via Natural or Artificial Opening Endoscopic (ICD-10-PCS; 2016-08-22)
PROC: 0UT9FZZ Resection of Uterus, Via Natural or Artificial Opening With Percutaneous Endoscopic Assistance (ICD-10-PCS; principal; 2016-08-22 07:30)
DX: D06.9 Carcinoma in situ of cervix, unspecified (principal); N13.5 Crossing vessel and stricture of ureter without hydronephrosis; I10 Essential (primary) hypertension; Z85.3 Personal history of malignant neoplasm of breast; Z80.41 Family history of malignant neoplasm of ovary; N88.2 Stricture and stenosis of cervix uteri; N95.0 Postmenopausal bleeding; N80.8 Other endometriosis; N85.00 Endometrial hyperplasia, unspecified
CPT/HCPCS: 80048; 81001; 85025; 86850; 86900; 86901; 86920; 87086; 88305; 88307; 88331; C2617; J0360; J0690; J1885; J2270; J2274; J2405; J2710; J2765; J3010; J3480; J7120; J7999

== ENCOUNTER 2016-09-03 10:32 | Emergency (ER) | payer OTHER ==
[~2016-09-03] VITALS: Ht 157.5 cm; Wt 87.5 kg
[2016-09-03 10:37] VITALS: Ht 157.5 cm; Wt 87.5 kg
[2016-09-03 12:29] LABS: ADD UMIC YES; UR BILIRUBIN (Dip) 1+ (NEGATIVE); UR BLOOD (Dip) 2+ (NEGATIVE); UR CLARITY CLEAR (CLEAR); UR COLOR AMBER (YELLOW); UR KETONES (Dip) TRACE (NEGATIVE); UR LEUKOCYTE ESTERASE (Dip) 3+ (NEGATIVE); UR NITRITE (Dip) POSITIVE (NEGATIVE); UR TOTAL PROTEIN (Dip) 4+ (NEGATIVE); UR UROBILINOGEN (Dip) >8.0 E.U./dL (0.1-1.0)
[2016-09-03 12:59] LABS: ICTOTEST POSITIVE (NEGATIVE)
[2016-09-03] MEDS ORDERED: CIPR500T4 PO (13:33)
[2016-09-03] MEDS ORDERED: KETOROLAC 60 MG INJ IM STA (13:39)
[2016-09-03 14:00] LABS: UR MUCUS FEW /HPF (NONE SEEN); UR RBC 70 /HPF (0-5); UR SQUAMOUS EPITHELIAL CELL FEW /HPF (FEW); UR TRANSITIONAL EPI CELL FEW /HPF (NONE SEEN)
--- NOTE | 2016-09-03 14:16 | ERD ---
ER Documentation Chief Complaint Date/Time DATE: 09/03/16 TIME: 14:10 Chief Complaint Pt presents with dyuria and B flank pain x 2 week on ABX s/p Hysterectomy HPI 51-year-old female patient with a past medical history of breast cancer presents to the ED complaining of dysuria, slight bilateral flank pain that started intermittently 2 weeks ago. Patient just had a hysterectomy by Dr. Hawkins and still has a Kothari catheter placed. The hysterectomy was for HGSIL for an abnormal Pap smear. This procedure was done on August 22, 2016. Denies any fever, chills, abdominal pain, vomiting, diarrhea, constipation, rashes. States that she followed up with Dr. Julia Acevedo, 1 week ago and was given a prescription for Pyridium and Bactrim which did not help with her symptoms. Reports that she is taking tamoxifen, metoprolol, hydrocodone. ROS All systems reviewed and are negative except as per history of present illness. Medications Home Meds Active Scripts Ciprofloxacin Hcl* (Ciprofloxacin Hcl*) 500 Mg Tablet, 500 MG PO BID for 10 Days , TAB Prov:SLICK BLACKMON PA-C 09/03/16 Reported Medications Tamoxifen Citrate* (Tamoxifen Citrate*) 20 Mg Tab, 20 MG PO DAILY, TAB 08/21/16 Metoprolol Tartrate* (Lopressor*) 50 Mg Tab, 50 MG PO BID, #60 TAB 05/07/16 Allergies Allergies: Coded Allergies: No Known Allergy (Unverified , 08/21/16) PMhx/Soc History of Surgery: Yes (, THRE BREAST SX--LEFT MATESTECTOMY WITH LYMPH NODES) Anesthesia Reaction: Yes (N/V) Hx Neurological Disorder: No Hx Respiratory Disorders: No Hx Cardiac Disorders: Yes (HTN) Hx Psychiatric Problems: No Hx Miscellaneous Medical Probl: Yes (BREAST CANCER -LEFT MASTECTOMY, hyst) Hx Alcohol Use: No Hx Substance Use: No Hx Tobacco Use: Yes (QUIT 3 YEARS AGO) Smoking Status: Never smoker Physical Exam Vitals Vital Signs Date Time Temp Pulse Resp B/P Pulse Ox O2 Delivery O2 Flow Rate FiO2 09/03/16 10:37 98.3 69 18 126/76 96 Physical Exam Const: Zzd-vic-aifdzbjku, well-nourished. In no acute distress. Head: Atraumatic, normocephalic Eyes: Normal Conjunctiva without injection. No purulent discharge. ENT: Normal external ear, nose. Moist oropharynx without tonsillar exudates. Non -erythematous pharynx. Uvula midline. No drooling. No trismus. Neck: No cervical midline tenderness. Full range of motion. No meningismus. No cervical lymphadenopathy. No JVD. Resp: Clear to auscultation bilaterally. No wheezing, rhonchi, rales, or crackles. No accessory muscle use. No retractions. Cardio: Regular rate and rhythm. No murmurs, rubs or gallops. Abd: Soft, nontender, non distended. Normal bowel sounds. No palpable masses. No rebound tenderness. No guarding. Negative McBurney's point. Negative psoas sign. Negative obturator sign. : Kothari catheter placed. Skin: No petechiae or rashes Back: No midline tenderness. No CVA tenderness. Ext: No cyanosis, or edema. Neur: Awake and alert. Normal gait. Normal coordination. Psych: Normal Mood and Affect Results 24 hrs Laboratory Tests Test 09/03/16 12:05 Urine Color ABEL Urine Clarity CLEAR Urine pH 5.0 Urine Specific [place] 1.010 Urine Ketones TRACE Urine Nitrite POSITIVE Urine Bilirubin 1+ Urine Ictotest POSITIVE Urine Urobilinogen >8.0 E.U./dL Urine Leukocyte Esterase 3+ Urine Microscopic RBC 70/HPF Urine Microscopic WBC > 182/HPF Urine Squamous Epithelial Cells FEW/HPF Urine Transitional Epithelial Cells FEW/HPF Urine Amorphous Crystals FEW/HPF Urine Bacteria FEW/HPF Urine Mucus FEW/HPF Urine Hemoglobin 2+ Urine Glucose 0.25%% Urine Total Protein 4+ Current Medications Medications (Trade) Dose Ordered Sig/Jonah Route PRN Reason Start Time Stop Time Status Last Admin Dose Admin Ketorolac Tromethamine (Toradol) 60 mg ONCE STAT IM 09/03/16 13:39 09/03/16 13:41 DC 09/03/16 13:47 Procedures/MDM This is a 51-year-old female patient with a past medical history of breast cancer presents the ED complaining of dysuria, urgency, frequency and slight lower back pain. Patient is afebrile and nontoxic-appearing. Patient has normal vital signs. A urinalysis, urine culture was ordered to further evaluate patient. The Kothari catheter was removed by nursing staff without complications. A catheter was placed for urine. Urinalysis showed positive nitrite, 3+ leukocyte esterase with greater than 182 white blood cells, hematuria. Patient will be treated for urinary tract infection caused by Kothari catheter placement. Patient was also able to urinate after Kothari catheter was removed. Patient's pain improved after receiving Toradol here in the ED. Low suspicion for postop complication, ovarian torsion, gastritis, GERD, peptic ulcer disease, cholecystitis, choledocholithiasis, cholangitis, pancreatitis, appendicitis, bowel obstruction, ileus, volvulus, nephrolithiasis, pyelonephritis, hepatitis, perforated viscus, diverticulitis, abdominal hernia, acute abdomen, mesenteric ischemia or other emergent conditions. Discharge medications: Ciprofloxacin Follow up with Dr. Hawkins within the next 2 days. Instructed patient to return to the ED sooner for any worsening symptoms. Patient's questions were answered. Patient understood and agreed with discharge plan. Patient discharged stable. Departure Diagnosis: Primary Impression: Dysuria Condition: Stable Patient Instructions: Kothari Catheter Removal, Dysuria Referrals: MARILEE HAWKINS MD [facility] YOU HAVE RECEIVED A MEDICAL SCREENING EXAM AND THE RESULTS INDICATE THAT YOU DO NOT HAVE A CONDITION THAT REQUIRES URGENT TREATMENT IN THE EMERGENCY DEPARTMENT. FURTHER EVALUATION AND TREATMENT OF YOUR CONDITION CAN WAIT UNTIL YOU ARE SEEN IN YOUR DOCTORS OFFICE WITHIN THE NEXT 1-2 DAYS. IT IS YOUR RESPONSIBILITY TO MAKE AN APPOINTMENT FOR FOLOW-UP CARE. IF YOU HAVE A PRIMARY DOCTOR --you should call your primary doctor and schedule an appointment IF YOU DO NOT HAVE A PRIMARY DOCTOR YOU CAN CALL OUR PHYSICIAN REFERRAL HOTLINE AT IF YOU CAN NOT AFFORD TO SEE A PHYSICIAN YOU CAN CHOSE FROM THE FOLLOWING [facility] CLINICS [facility] [address] [facility]. [facility] [address] [facility]. [facility] [address] [facility]. [facility] [address] [facility]. [facility] [address] [facility]. [facility]. [address] [facility] YOU HAVE RECEIVED A MEDICAL SCREENING EXAM AND THE RESULTS INDICATE THAT YOU DO NOT HAVE A CONDITION THAT REQUIRES URGENT TREATMENT IN THE EMERGENCY DEPARTMENT. FURTHER EVALUATION AND TREATMENT OF YOUR CONDITION CAN WAIT UNTIL YOU ARE SEEN IN YOUR DOCTORS OFFICE WITHIN THE NEXT 1-2 DAYS. IT IS YOUR RESPONSIBILITY TO MAKE AN APPOINTMENT FOR FOLOW-UP CARE. IF YOU HAVE A PRIMARY DOCTOR --you should call your primary doctor and schedule and appointment IF YOU DO NOT HAVE A PRIMARY DOCTOR YOU CAN CALL OUR PHYSICIAN REFERRAL HOTLINE AT . IF YOU CAN NOT AFFORD TO SEE A PHYSICIAN YOU CAN CHOSE FROM THE FOLLOWING [facility] INSTITUTIONS: [facility] [address] [place] [address] [facility] [address] [place] [place] [id number] [place] [address] [address] [place] [address] [facility] URGENT CARE/SPECIALTIES Additional Instructions: Follow-up with Dr. Hawkins in 2 days for further evaluation and treatment. See the doctor sooner or return here if your condition worsens before your appointment time. SLICK BLACKMON PA-C Sep 03, 2016 14:15
[2016-09-03 14:23] LABS: UR AMORPHOUS CRYSTAL FEW /HPF (NONE SEEN); UR ASCORBIC ACID NEGATIVE (NEGATIVE); UR BACTERIA FEW /HPF (NONE SEEN)
== END 2016-09-03 13:54 | disposition home or self-care (01) ==
LOC: FTE 10:32
DX: R30.0 Dysuria (principal); I10 Essential (primary) hypertension; Z85.3 Personal history of malignant neoplasm of breast; Z87.891 Personal history of nicotine dependence
CPT/HCPCS: 81001; 87086; 96372; J1885; P9612; Z7502

== ENCOUNTER 2016-11-06 18:24 | Inpatient (IN) | payer OTHER ==
[~2016-11-06] VITALS: Ht 157.5 cm; Wt 82.5 kg
[~2016-11-06 18:24] MED LIST changes: +CIPR500T4 PO
[2016-11-06] MEDS ORDERED: HYDROmorphONE 1 MG/ML SYG IV STA ×2 (19:21→22:08)
[2016-11-06] MEDS ORDERED: ONDANSETRON 4 MG INJ IV STA (19:21)
[2016-11-06 20:11] LABS: BASOPHILS % 0.3 % (0.0-2.0); EOSINOPHILS # 0.1 10^3/ul (0.0-0.5); EOSINOPHILS % 1.3 % (0.0-7.0); HEMATOCRIT 37.1 % (37.0-47.0); HEMOGLOBIN 11.9 g/dl (12.0-16.0); LYMPHOCYTES # 1.8 10^3/ul (0.8-2.9); LYMPHOCYTES % 18.4 % (15.0-51.0); MEAN CORPUSCULAR HEMOGLOBIN 25.2 pg (29.0-33.0); MEAN CORPUSCULAR HGB CONC 32.1 g/dl (32.0-37.0); MEAN CORPUSCULAR VOLUME 78.4 fl (82.0-101.0); MEAN PLATELET VOLUME 9.9 fl (7.4-10.4); MONOCYTE # 0.7 10^3/ul (0.3-0.9); NEUTROPHILS % 72.6 % (39.0-77.0); PLATELET COUNT 327 10^3/UL (140-415); RED BLOOD COUNT 4.73 10^6/ul (4.20-5.40); RED CELL DISTRIBUTION WIDTH 13.2 % (11.5-14.5); WHITE BLOOD COUNT 9.8 10^3/ul (4.8-10.8)
[2016-11-06 20:12] LABS: ADD UMIC YES; UR ASCORBIC ACID NEGATIVE (NEGATIVE); UR BILIRUBIN (Dip) NEGATIVE (NEGATIVE); UR BLOOD (Dip) 3+ mg/dL (NEGATIVE); UR BUDDING YEAST FEW /HPF (NONE SEEN); UR CLARITY CLOUDY (CLEAR); UR COLOR AMBER (YELLOW); UR GLUCOSE (Dip) NEGATIVE (NEGATIVE); UR KETONES (Dip) 1+ mg/dL (NEGATIVE); UR LEUKOCYTE ESTERASE (Dip) 3+ Leu/ul (NEGATIVE); UR MUCUS MANY /HPF (NONE SEEN); UR NITRITE (Dip) NEGATIVE (NEGATIVE); UR RBC > 182 /HPF (0-5); UR SPECIFIC GRAVITY (Dip) 1.028 (1.003-1.030); UR SQUAMOUS EPITHELIAL CELL FEW /HPF (FEW); UR TOTAL PROTEIN (Dip) 3+ mg/dl (NEGATIVE); UR UROBILINOGEN (Dip) NEGATIVE (NEGATIVE)
[2016-11-06 20:21] LABS: INR 1.07; PROTIME 13.9 Sec (12.2-14.2); PT RATIO 1.1
[2016-11-06 20:28] LABS: ALBUMIN 4.2 g/dl (3.3-4.9); ALBUMIN/GLOBULIN RATIO 1.16; BILIRUBIN,INDIRECT 0.1 mg/dl (0-1.1); BILIRUBIN,TOTAL 0.1 mg/dl (0.2-1.3); CALCIUM 9.3 mg/dl (8.4-10.2); CREATININE 1.01 mg/dl (0.44-1.00); POTASSIUM 3.9 mmol/L (3.5-5.1); TOTAL PROTEIN 7.8 g/dl (6.1-8.1)
--- NOTE | 2016-11-06 21:45 | ERA ---
ER Documentation Chief Complaint Date/Time DATE: 11/06/16 TIME: 21:36 Chief Complaint abd pain with n/v since august 22 after hysterectomy HPI 51-year-old woman presents with continued abdominal pain, nausea, vomiting 3 weeks. Patient has a history of hysterectomy and oophorectomy as well as bilateral ureteral stents placed. She states recently she has had urine tracking around the sides of the stent and has had severe pain despite using oral analgesics. She also feels weak. She denies fevers or chills, no diarrhea , no chest pain or shortness of breath, no loss of consciousness. She saw her tomato grader Dr. Hawkins today who recommended admission and inpatient management after reviewing a CT urogram which showed bilateral double-J ureteral stents which appear to be displaced inferiorly on the left and blocked on the right causing severe right sided hydronephrosis and delayed contrast excretion. ROS All systems reviewed and are negative except as per history of present illness. Medications Home Meds Active Scripts Ciprofloxacin Hcl* (Ciprofloxacin Hcl*) 500 Mg Tablet, 500 MG PO BID for 10 Days , TAB Prov:SLICK BLACKMON PA-C 09/03/16 Reported Medications Tamoxifen Citrate* (Tamoxifen Citrate*) 20 Mg Tab, 20 MG PO DAILY, TAB 08/21/16 Metoprolol Tartrate* (Lopressor*) 50 Mg Tab, 50 MG PO BID, #60 TAB 05/07/16 Allergies Allergies: Coded Allergies: No Known Allergy (Unverified , 08/21/16) PMhx/Soc SHAYNE-BSO History of Surgery: Yes (, THRE BREAST SX--LEFT MATESTECTOMY WITH LYMPH NODES) Anesthesia Reaction: Yes (N/V) Hx Neurological Disorder: No Hx Respiratory Disorders: No Hx Cardiac Disorders: Yes (HTN) Hx Psychiatric Problems: No Hx Miscellaneous Medical Probl: Yes (BREAST CANCER -LEFT MASTECTOMY, hyst) Hx Alcohol Use: No Hx Substance Use: No Hx Tobacco Use: Yes (QUIT 3 YEARS AGO) Smoking Status: Former smoker FmHx Family History: No diabetes Physical Exam Vitals Vital Signs Date Time Temp Pulse Resp B/P Pulse Ox O2 Delivery O2 Flow Rate FiO2 11/06/16 20:11 98.8 95 18 139/87 98 Room Air 11/06/16 18:52 98.0 83 20 129/78 98 Physical Exam GENERAL: Well-developed, well-nourished, moderate discomfort HEENT: Moist mucous membranes, pink conjunctiva, no cervical spine tenderness or step-off deformities, no goiter, no jaundice or icterus, extraocular movements intact without pain. No submandibular induration, and no pharyngeal erythema NEURO: Alert and oriented 3, cranial nerves II through XII intact bilaterally, pupils equal round reactive to light, no focal deficits or facial asymmetry, sensation intact distally Strength 5/5 in upper and lower extremities bilaterally CARDIAC: Regular rate and rhythm, no murmurs rubs or gallops LUNGS: Clear bilaterally no wheezing crackles or stridor ABDOMEN: Soft nontender, no guarding, no rigidity, no rebound, no psoas sign no obturator sign. SKIN: Warm and dry to touch, no abrasions, contusions, or hematomas, no lacerations, no ecchymosis, no target lesions, and without ulcers EXTREMITIES: No clubbing cyanosis or edema, calves are bilaterally symmetrical, no Homans sign, no popliteal cord sign. Distal pulses equal and bilateral PSYCH: Normal affect without agitation or irritability Result Diagram: 11/06/16193911/06/161939 Results 24 hrs Laboratory Tests Test 11/06/16 19:40 White Blood Count 9.810^3/ul Red Blood Count 4.7310^6/ul Hemoglobin 11.9g/dl Hematocrit 37.1% Mean Corpuscular Volume 78.4fl Mean Corpuscular Hemoglobin 25.2pg Mean Corpuscular Hemoglobin Concent 32.1g/dl Red Cell Distribution Width 13.2% Platelet Count 77554^3/UL Mean Platelet Volume 9.9fl Neutrophils % 72.6% Lymphocytes % 18.4% Monocytes % 7.0% Eosinophils % 1.3% Basophils % 0.3% Nucleated Red Blood Cells % 0.0/100WBC Neutrophils # (Manual) 710^3/ul Lymphocytes # 1.810^3/ul Monocytes # 0.710^3/ul Eosinophils # 0.110^3/ul Basophils # 0.010^3/ul Nucleated Red Blood Cells # 0.010^3/ul Prothrombin Time 13.9Sec Prothrombin Time Ratio 1.1 INR International Normalized Ratio 1.07 Urine Color ABEL Urine Clarity CLOUDY Urine pH 6.0 Urine Specific [place] 1.028 Urine Ketones 1+mg/dL Urine Nitrite NEGATIVEmg/dL Urine Bilirubin NEGATIVEmg/dL Urine Urobilinogen NEGATIVEmg/dL Urine Leukocyte Esterase 3+Jessi/ul Urine Microscopic RBC > 182/HPF Urine Microscopic WBC > 182/HPF Urine Squamous Epithelial Cells FEW/HPF Urine Mucus MANY/HPF Urine Yeast (Budding) FEW/HPF Urine Hemoglobin 3+mg/dL Urine Glucose NEGATIVEmg/dL Urine Total Protein 3+mg/dl Sodium Level 138mmol/L Potassium Level 3.9mmol/L Chloride Level 99mmol/L Carbon Dioxide Level 27mmol/L Anion Gap 16 Blood Urea Nitrogen 11mg/dl Creatinine 1.01mg/dl Glucose Level 150mg/dl Calcium Level 9.3mg/dl Total Bilirubin 0.1mg/dl Direct Bilirubin 0.00mg/dl Indirect Bilirubin 0.1mg/dl Aspartate Amino Transf (AST/SGOT) 22IU/L Alanine Aminotransferase (ALT/SGPT) 34IU/L Alkaline Phosphatase 59IU/L Total Protein 7.8g/dl Albumin 4.2g/dl Globulin 3.60g/dl Albumin/Globulin Ratio 1.16 Lipase 78U/L Current Medications Medications (Trade) Dose Ordered Sig/Jonah Route PRN Reason Start Time Stop Time Status Last Admin Dose Admin Hydromorphone HCl (Dilaudid) 1 mg ONCE STAT IV 11/06/16 19:21 11/06/16 19:23 DC 11/06/16 19:44 Ondansetron HCl (Zofran Inj) 4 mg ONCE STAT IV 11/06/16 19:21 11/06/16 19:23 DC 11/06/16 19:43 Procedures/MDM IV line was established patient was placed on rn cardiac rehab rhythm strip revealed a sinus rhythm at about 80 bpm with upright P and T waves. Patient was afebrile. Urine cultures were ordered results are pending I will follow-up I administered 1 L normal saline intravenously, hydromorphone 1 mg IV, Zofran 4 mg IV. I reviewed her recent CT urogram. CBC and electrolytes were unremarkable, liver function tests normal, coagulation profile was normal. Urine analysis was positive for infection. I treated the patient here with Zosyn 3.375 g IV. Patient [facility] be admitted to [facility] for continued medical management, gynecology and urology evaluations per Departure Diagnosis: Primary Impression: Hydronephrosis concurrent with and due to ureteral stricture Additional Impressions: Intractable abdominal pain Intractable vomiting Qualified Code: R11.2 - Intractable vomiting with nausea, unspecified vomiting type UTI (urinary tract infection) Qualified Code: N30.00 - Acute cystitis without hematuria Condition: ODALYS Salcedo MD Nov 06, 2016 21:39
[2016-11-06] MEDS ORDERED: PIPER-TAZO 3.375 GM IV (PMX) 100 ML IVPB ONE (22:00)
[2016-11-06] MEDS ORDERED: SOD CHLORIDE 0.9% 1,000 ML IV ONE (22:00)
[2016-11-06 22:04] VITALS: TEMP 99
[2016-11-06] MEDS ORDERED: METR250T19 PO (23:09)
[2016-11-06] MEDS ORDERED: HYDR-906 PO (23:09)
[2016-11-06] MEDS ORDERED: LEVO750T8 PO (23:09)
[2016-11-06] MEDS ORDERED: ACET-141 PO (23:09)
[2016-11-06] MEDS ORDERED: OMEP20CA16 PO (23:09)
[2016-11-07] MEDS ORDERED: BISACODYL (EC) 5 MG TAB PO PRN
[2016-11-07] MEDS ORDERED: PIPER-TAZO 3.375 GM IV (PMX) 100 ML IVPB SCH
[2016-11-07] MEDS ORDERED: HYDROCODONE/APAP (5/325) TAB PO PRN
[2016-11-07] MEDS ORDERED: DOCUSATE SODIUM 100 MG CAP PO PRN
[2016-11-07] MEDS ORDERED: ZOLPIDEM 5 MG TAB PO PRN
[2016-11-07] MEDS ORDERED: morphine 2 MG INJ IV PRN
[2016-11-07] MEDS ORDERED: ONDANSETRON 4 MG INJ IV PRN
[2016-11-07] MEDS ORDERED: MAGNESIUM HYDROXIDE 30ML CUP PO PRN
[2016-11-07] MEDS ORDERED: NACL 0.9% 3 ML SYG IV SCH
[2016-11-07 00:17] VITALS: Ht 157.5 cm; Wt 82.5 kg
[2016-11-07 00:18] VITALS: BP 124/79; PULSE 89; RESP 20
[2016-11-07] MEDS: DEXTROSE 5%-0.45% NACL 1,000 ML IV SCH ×2 (01:00→13:58)
[2016-11-07] MEDS: PIPER-TAZO 3.375 GM IV (PMX) 100 ML IVPB SCH ×5 (02:37→23:00)
[2016-11-07 06:07] LABS: BASOPHILS % 0.3 % (0.0-2.0); EOSINOPHILS # 0.1 10^3/ul (0.0-0.5); HEMATOCRIT 31.8 % (37.0-47.0); HEMOGLOBIN 10.1 g/dl (12.0-16.0); LYMPHOCYTES % 30.8 % (15.0-51.0); MEAN CORPUSCULAR HEMOGLOBIN 25.2 pg (29.0-33.0); MEAN CORPUSCULAR HGB CONC 31.8 g/dl (32.0-37.0); MEAN CORPUSCULAR VOLUME 79.3 fl (82.0-101.0); MONOCYTE # 0.6 10^3/ul (0.3-0.9); MONOCYTES % 9.7 % (0.0-11.0); NEUTROPHILS % 56.9 % (39.0-77.0); PLATELET COUNT 273 10^3/UL (140-415); RED BLOOD COUNT 4.01 10^6/ul (4.20-5.40); RED CELL DISTRIBUTION WIDTH 13.2 % (11.5-14.5); WHITE BLOOD COUNT 6.6 10^3/ul (4.8-10.8)
[2016-11-07 06:25] LABS: CALCIUM 8.4 mg/dl (8.4-10.2); CREATININE 0.98 mg/dl (0.44-1.00); POTASSIUM 3.8 mmol/L (3.5-5.1)
[2016-11-07 07:26] LABS: UR BACTERIA FEW /HPF (NONE SEEN); UR BUDDING YEAST FEW /HPF (NONE SEEN); UR RBC 32 /HPF (0-5)
[2016-11-07 07:38] VITALS: BP 114/68; RESP 18
[2016-11-07 08:14] LABS: ADD UMIC YES; UR ASCORBIC ACID NEGATIVE (NEGATIVE); UR BILIRUBIN (Dip) NEGATIVE (NEGATIVE); UR BLOOD (Dip) 2+ mg/dL (NEGATIVE); UR CLARITY SLIGHTLY CLOUDY (CLEAR); UR COLOR YELLOW (YELLOW); UR GLUCOSE (Dip) NEGATIVE (NEGATIVE); UR KETONES (Dip) NEGATIVE (NEGATIVE); UR LEUKOCYTE ESTERASE (Dip) 3+ Leu/ul (NEGATIVE); UR NITRITE (Dip) NEGATIVE (NEGATIVE); UR SPECIFIC GRAVITY (Dip) 1.012 (1.003-1.030); UR TOTAL PROTEIN (Dip) 1+ mg/dl (NEGATIVE); UR UROBILINOGEN (Dip) NEGATIVE (NEGATIVE)
[2016-11-07] MEDS: FAMOTIDINE 20 MG TAB PO SCH ×2 (08:22→21:49)
[2016-11-07] MEDS: ENOXAPARIN 30 MG/0.3 ML SYG SC SCH (08:24)
[2016-11-07 15:08] VITALS: BP 133/78; RESP 18
--- NOTE | 2016-11-07 18:19 | PN ---
Date/Time of Note Date/Time of Note DATE: 11/07/16 TIME: 18:14 Assessment/Plan VTE Prophylaxis VTE Prophylaxis Intervention: SCD's Lines/Catheters IV Catheter Type (from Nrsg): Peripheral IV Urinary Cath still in place: Yes (Inserted at MD office per patient) Reason Cath still needed: other (indicate) Assessment/Plan Chief Complaint/Hosp Course admitted with right hydroureter and rt stent coming out of place and both in 11 wks; left small fistula vs leakage due to irritation Problems: Assessment/Plan A- resting and comfortable. P- discussed with Dr. Malik and awaits Dr. Austin Subjective 24 Hr Interval Summary Free Text/Dictation Feels slightly better but some pain and medicated. No leakage at this time. Exam/Review of Systems Vital Signs Vitals Vital Signs Date Time Temp Pulse Resp B/P Pulse Ox O2 Delivery O2 Flow Rate FiO2 11/07/16 15:08 98.1 79 18 133/78 97 11/07/16 00:18 Room Air Intake and Output 11/06/16 11/06/16 11/07/16 15:00 23:00 07:00 Intake Total 825 ml Output Total 800 ml Balance 25 ml Exam Resp- clear CVS- NSR Abd- soft mild s/p tenderness and CVAT R>L Ext - NT' no edema Results Result Diagram: 11/07/16 0454 11/07/16 0454 Results 24 hrs Laboratory Tests Test 11/06/16 19:40 11/07/16 04:00 11/07/16 04:54 White Blood Count 9.8 # 6.6 # Red Blood Count 4.73 4.01 L Hemoglobin 11.9 L 10.1 L Hematocrit 37.1 31.8 L Mean Corpuscular Volume 78.4 L 79.3 L Mean Corpuscular Hemoglobin 25.2 L 25.2 L Mean Corpuscular Hemoglobin Concent 32.1 31.8 L Red Cell Distribution Width 13.2 13.2 Platelet Count 327 # 273 Mean Platelet Volume 9.9 10.0 Neutrophils % 72.6 56.9 Lymphocytes % 18.4 30.8 Monocytes % 7.0 9.7 Eosinophils % 1.3 2.0 Basophils % 0.3 0.3 Nucleated Red Blood Cells % 0.0 0.0 Neutrophils # (Manual) 7 4 Lymphocytes # 1.8 2.0 Monocytes # 0.7 0.6 Eosinophils # 0.1 0.1 Basophils # 0.0 0.0 Nucleated Red Blood Cells # 0.0 0.0 Prothrombin Time 13.9 Prothrombin Time Ratio 1.1 INR International Normalized Ratio 1.07 Urine Color ABEL YELLOW Urine Clarity CLOUDY A SLIGHTLY CLOUDY A Urine pH 6.0 7.0 Urine Specific [place] 1.028 1.012 Urine Ketones 1+ H NEGATIVE Urine Nitrite NEGATIVE NEGATIVE Urine Bilirubin NEGATIVE NEGATIVE Urine Urobilinogen NEGATIVE NEGATIVE Urine Leukocyte Esterase 3+ H 3+ H Urine Microscopic RBC > 182 H 32 H Urine Microscopic WBC > 182 H 84 H Urine Squamous Epithelial Cells FEW Urine Mucus MANY A Urine Yeast (Budding) FEW A FEW A Urine Hemoglobin 3+ H 2+ H Urine Glucose NEGATIVE NEGATIVE Urine Total Protein 3+ H 1+ H Sodium Level 138 140 Potassium Level 3.9 3.8 Chloride Level 99 104 Carbon Dioxide Level 27 28 Anion Gap 16 12 Blood Urea Nitrogen 11 10 Creatinine 1.01 H 0.98 Glucose Level 150 185 Calcium Level 9.3 8.4 Total Bilirubin 0.1 L Direct Bilirubin 0.00 Indirect Bilirubin 0.1 Aspartate Amino Transf (AST/SGOT) 22 Alanine Aminotransferase (ALT/SGPT) 34 Alkaline Phosphatase 59 Total Protein 7.8 Albumin 4.2 Globulin 3.60 H Albumin/Globulin Ratio 1.16 Lipase 78 Urine Bacteria FEW A Medications Medications Current Medications Dextrose/Sodium Chloride (D5-1/2ns) 1,000 ml @ 75 mls/hr [id number] IV Last administered on 11/07/16t 13:58; Admin Dose 75 MLS/HR; Start 11/06/16 at 23:40 Ondansetron HCl (Zofran Inj) 4 mg Q6H PRN IV NAUSEA AND/OR VOMITING; Start at 00:00 Acetaminophen (Tylenol Tab) 650 mg Q6H PRN PO PAIN LEVEL 1-3 OR FEVER; Start at 00:00 Acetaminophen/ Hydrocodone Bitart ([place] (5/325)) 1 tab Q6H PRN PO MODERATE PAIN LEVEL 4-6; Start 11/07/16 at 00:00 Morphine Sulfate (morphine) 2 mg Q4H PRN IV SEVERE PAIN LEVEL 7-10; Start 11/07 at 00:00 Docusate Sodium (Colace) 100 mg Q12H PRN PO CONSTIPATION; Start 11/07/16 at 00: 00 Magnesium Hydroxide (Milk Of Mag) 30 ml DAILY PRN PO CONSTIPATION; Start at 00:00 Bisacodyl (Dulcolax) 5 mg DAILY PRN PO CONSTIPATION; Start 11/07/16 at 00:00 Zolpidem Tartrate (Ambien) 5 mg QHS PRN PO SLEEP; Start 11/07/16 at 00:00 Famotidine (Pepcid) 20 mg Q12 PO Last administered on 11/07/16 08:22; Admin Dose 20 MG; Start 11/07/16 at 09:00 Enoxaparin Sodium 30 mg 30 mg DAILY SC Last administered on 11/07/16 08:24; Admin Dose 30 MG; Start 11/07/16 at 09:00 Piperacillin Sod/ Tazobactam Sod (Zosyn 3.375gm/ 100 ml (Pmx)) 100 ml @ 200 mls /hr Q6 IVPB Last administered on 11/07/16 18:04; Admin Dose 200 MLS/HR; Start 11/07/16 at 02:00 Tamoxifen Citrate (Nolvadex) 20 mg DAILY PO ; Start 11/08/16 at 09:00 Metoprolol Tartrate (Lopressor) 50 mg BID PO ; Start 11/07/16 at 21:00 MARILEE TOLBERT MD Nov 07, 2016 18:19
--- NOTE | 2016-11-07 19:02 | CONS ---
Date/Time of Note Date/Time of Note DATE: 11/07/16 TIME: 18:50 Assessment/Plan Assessment/Plan Chief Complaint/Hosp Course Right hydronephrosis, right ureteral JJ stent with the proximal curl in the upper ureter rather than in the kidney. 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 Urine culture is pending The patient is a 51-year-old female who underwent laparoscopic hysterectomy in August and had bilateral ureteral JJ stents placed. She has been having pain and nausea and incontinence of the urine however she is not certain whether the urine is coming from the vagina or from the urethra as she has urgency and urgency incontinence and that could be also irritation of her bladder by the JJ stents. We'll cover her with antibiotic at the present and keep the Kothari catheter in. Then on Friday we'll do a cystoscopy, remove both stents and do retrograde pyelograms and if there is any leakage from the left ureter insert a new left ureteral JJ stent Problems: Consultation Date/Type/Reason Admit Date/Time Nov 06, 2016 at 19:56 Date of Consultation: Nov 07, 2016 Type of Consultation: Urology Reason for Consultation Right hydronephrosis, right ureteral JJ stent with the proximal curl in the upper ureter rather than in the kidney. 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 The patient is a 51-year-old female who underwent laparoscopic hysterectomy in August and had bilateral ureteral JJ stents placed. She has been having pain and nausea and incontinence of the urine however she is not certain whether the urine is coming from the vagina or from the urethra as she has urgency and urgency incontinence and that could be also irritation of her bladder by the JJ stents. Referring Provider: LM VÁZQUEZ MD Hx of Present Illness Right hydronephrosis, right ureteral JJ stent with the proximal curl in the upper ureter rather than in the kidney. 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 The patient is a 51-year-old female who underwent laparoscopic hysterectomy in August and had bilateral ureteral JJ stents placed. She has been having pain and nausea and incontinence of the urine however she is not certain whether the urine is coming from the vagina or from the urethra as she has urgency and urgency incontinence and that could be also irritation of her bladder by the JJ stents. Constitutional: no complaints Eyes: no complaints ENT: no complaints Respiratory: no complaints Cardiovascular: no complaints Gastrointestinal: nausea, pain, No vomiting Genitourinary: dysuria, other (Urinary incontinence) Musculoskeletal: no complaints Skin: no complaints Neurologic: no complaints Endocrine: no complaints Psychological: no complaints Past Surgical History Past Surgical Hx: other (Laparoscopic hysterectomy) Family History Significant Family History: no pertinent family hx Social History Smoking Status: Former smoker Drug Use: none Exam/Review of Systems Vital Signs Vitals Vital Signs Date Time Temp Pulse Resp B/P Pulse Ox O2 Delivery O2 Flow Rate FiO2 11/07/16 15:08 98.1 79 18 133/78 97 11/07/16 00:18 Room Air Intake and Output 11/06/16 11/06/16 11/07/16 15:00 23:00 07:00 Intake Total 825 ml Output Total 800 ml Balance 25 ml Exam Constitutional: alert, oriented Eyes: nl conjunctiva ENMT: nl external ears & nose Neck: supple Respiratory: normal air movement Cardiovascular: No edema Gastrointestinal: soft Genitourinary - Female: other (Pelvic exam there is no drainage of urine from the vagina that is detectable and no discharge. The patient does have a Kothari catheter that is draining clear urine), No CVA tenderness Extremities: No calf tenderness, No tenderness Skin: nl turgor Results Result Diagram: 11/07/16 0454 11/07/16 0454 Results 24 hrs Laboratory Tests Test 11/06/16 19:40 11/07/16 04:00 11/07/16 04:54 White Blood Count 9.8 # 6.6 # Red Blood Count 4.73 4.01 L Hemoglobin 11.9 L 10.1 L Hematocrit 37.1 31.8 L Mean Corpuscular Volume 78.4 L 79.3 L Mean Corpuscular Hemoglobin 25.2 L 25.2 L Mean Corpuscular Hemoglobin Concent 32.1 31.8 L Red Cell Distribution Width 13.2 13.2 Platelet Count 327 # 273 Mean Platelet Volume 9.9 10.0 Neutrophils % 72.6 56.9 Lymphocytes % 18.4 30.8 Monocytes % 7.0 9.7 Eosinophils % 1.3 2.0 Basophils % 0.3 0.3 Nucleated Red Blood Cells % 0.0 0.0 Neutrophils # (Manual) 7 4 Lymphocytes # 1.8 2.0 Monocytes # 0.7 0.6 Eosinophils # 0.1 0.1 Basophils # 0.0 0.0 Nucleated Red Blood Cells # 0.0 0.0 Prothrombin Time 13.9 Prothrombin Time Ratio 1.1 INR International Normalized Ratio 1.07 Urine Color ABEL YELLOW Urine Clarity CLOUDY A SLIGHTLY CLOUDY A Urine pH 6.0 7.0 Urine Specific [place] 1.028 1.012 Urine Ketones 1+ H NEGATIVE Urine Nitrite NEGATIVE NEGATIVE Urine Bilirubin NEGATIVE NEGATIVE Urine Urobilinogen NEGATIVE NEGATIVE Urine Leukocyte Esterase 3+ H 3+ H Urine Microscopic RBC > 182 H 32 H Urine Microscopic WBC > 182 H 84 H Urine Squamous Epithelial Cells FEW Urine Mucus MANY A Urine Yeast (Budding) FEW A FEW A Urine Hemoglobin 3+ H 2+ H Urine Glucose NEGATIVE NEGATIVE Urine Total Protein 3+ H 1+ H Sodium Level 138 140 Potassium Level 3.9 3.8 Chloride Level 99 104 Carbon Dioxide Level 27 28 Anion Gap 16 12 Blood Urea Nitrogen 11 10 Creatinine 1.01 H 0.98 Glucose Level 150 185 Calcium Level 9.3 8.4 Total Bilirubin 0.1 L Direct Bilirubin 0.00 Indirect Bilirubin 0.1 Aspartate Amino Transf (AST/SGOT) 22 Alanine Aminotransferase (ALT/SGPT) 34 Alkaline Phosphatase 59 Total Protein 7.8 Albumin 4.2 Globulin 3.60 H Albumin/Globulin Ratio 1.16 Lipase 78 Urine Bacteria FEW A Medications Medications Current Medications Dextrose/Sodium Chloride (D5-1/2ns) 1,000 ml @ 75 mls/hr [id number] IV Last administered on 11/07/16t 13:58; Admin Dose 75 MLS/HR; Start 11/06/16 at 23:40 Ondansetron HCl (Zofran Inj) 4 mg Q6H PRN IV NAUSEA AND/OR VOMITING; Start at 00:00 Acetaminophen (Tylenol Tab) 650 mg Q6H PRN PO PAIN LEVEL 1-3 OR FEVER; Start at 00:00 Acetaminophen/ Hydrocodone Bitart ([place] (5/325)) 1 tab Q6H PRN PO MODERATE PAIN LEVEL 4-6; Start 11/07/16 at 00:00 Morphine Sulfate (morphine) 2 mg Q4H PRN IV SEVERE PAIN LEVEL 7-10; Start 11/07 at 00:00 Docusate Sodium (Colace) 100 mg Q12H PRN PO CONSTIPATION; Start 11/07/16 at 00: 00 Magnesium Hydroxide (Milk Of Mag) 30 ml DAILY PRN PO CONSTIPATION; Start at 00:00 Bisacodyl (Dulcolax) 5 mg DAILY PRN PO CONSTIPATION; Start 11/07/16 at 00:00 Zolpidem Tartrate (Ambien) 5 mg QHS PRN PO SLEEP; Start 11/07/16 at 00:00 Famotidine (Pepcid) 20 mg Q12 PO Last administered on 11/07/16 08:22; Admin Dose 20 MG; Start 11/07/16 at 09:00 Enoxaparin Sodium 30 mg 30 mg DAILY SC Last administered on 11/07/16 08:24; Admin Dose 30 MG; Start 11/07/16 at 09:00 Piperacillin Sod/ Tazobactam Sod (Zosyn 3.375gm/ 100 ml (Pmx)) 100 ml @ 200 mls /hr Q6 IVPB Last administered on 11/07/16 18:04; Admin Dose 200 MLS/HR; Start 11/07/16 at 02:00 Tamoxifen Citrate (Nolvadex) 20 mg DAILY PO ; Start 11/08/16 at 09:00 Metoprolol Tartrate (Lopressor) 50 mg BID PO ; Start 11/07/16 at 21:00 ISIDORO BROWN MD Nov 07, 2016 19:01
[2016-11-07 20:19] VITALS: BP 142/81; RESP 20
[2016-11-07] MEDS: METOPROLOL 50 MG TAB PO SCH (21:50)
[2016-11-07] MEDS: TAMOXIFEN 10 MG TAB PO SCH (22:33)
[2016-11-08] MEDS: DEXTROSE 5%-0.45% NACL 1,000 ML IV SCH ×2 (03:12→16:50)
[2016-11-08] MEDS: PIPER-TAZO 3.375 GM IV (PMX) 100 ML IVPB SCH ×3 (05:22→19:27)
[2016-11-08] MEDS: ACETAMINOPHEN 325 MG TAB PO PRN ×2 (05:23→23:20)
[2016-11-08 05:28] LABS: BASOPHILS % 0.2 % (0.0-2.0); EOSINOPHILS # 0.2 10^3/ul (0.0-0.5); HEMATOCRIT 32.9 % (37.0-47.0); HEMOGLOBIN 10.5 g/dl (12.0-16.0); LYMPHOCYTES # 2.4 10^3/ul (0.8-2.9); LYMPHOCYTES % 44.3 % (15.0-51.0); MEAN CORPUSCULAR HEMOGLOBIN 25.4 pg (29.0-33.0); MEAN CORPUSCULAR HGB CONC 31.9 g/dl (32.0-37.0); MEAN CORPUSCULAR VOLUME 79.7 fl (82.0-101.0); MEAN PLATELET VOLUME 9.8 fl (7.4-10.4); MONOCYTE # 0.4 10^3/ul (0.3-0.9); MONOCYTES % 8.1 % (0.0-11.0); NEUTROPHILS % 43.2 % (39.0-77.0); PLATELET COUNT 277 10^3/UL (140-415); RED BLOOD COUNT 4.13 10^6/ul (4.20-5.40); RED CELL DISTRIBUTION WIDTH 13.2 % (11.5-14.5); WHITE BLOOD COUNT 5.3 10^3/ul (4.8-10.8)
[2016-11-08 05:49] LABS: CALCIUM 8.5 mg/dl (8.4-10.2); CREATININE 0.85 mg/dl (0.44-1.00); POTASSIUM 3.8 mmol/L (3.5-5.1)
[2016-11-08 08:01] VITALS: BP 133/79; RESP 19
[2016-11-08] MEDS: FAMOTIDINE 20 MG TAB PO SCH ×2 (08:26→20:20)
[2016-11-08] MEDS: METOPROLOL 50 MG TAB PO SCH ×2 (08:27→20:21)
[2016-11-08] MEDS: ENOXAPARIN 30 MG/0.3 ML SYG SC SCH (08:32)
[2016-11-08 14:00] VITALS: BP 121/61; RESP 18
--- NOTE | 2016-11-08 15:09 | PN ---
Date/Time of Note Date/Time of Note DATE: 11/08/16 TIME: 14:55 Assessment/Plan VTE Prophylaxis VTE Prophylaxis Intervention: SCD's Lines/Catheters [facility] Peripheral IV Urinary Cath still in place: Yes Reason Cath still needed: urinary retention Assessment/Plan Assessment/Plan -Right hydronephrosis, status post bilateral JJ stent placement, right ureteral JJ stent with the proximal curl in the upper ureter, possible left uretero vaginal fistula. Dr. Austin is following in urology consultation. Plan for cystoscopy was removal of J stent possible pyelogram on Friday. - Urinary tract infection, cultures positive for yeast will start Diflucan -Status post laparoscopic hysterectomy and bilateral salpingo-oophorectomy in August 2016 - Hx of Left breast cancer status post mastectomy with tissue orchard pruner placement. Patient is currently continued on tamoxifen. Further recommendations based on clinical course. Plan of care discussed with Dr. Malik. Exam/Review of Systems Vital Signs Vitals Vital Signs Date Time Temp Pulse Resp B/P Pulse Ox O2 Delivery O2 Flow Rate FiO2 11/08/16 08:01 98.0 64 19 133/79 98 11/07/16 00:18 Room Air Intake and Output 11/07/16 11/07/16 11/08/16 15:00 23:00 07:00 Intake Total 700 ml 300 ml 1450 ml Output Total 1100 ml Balance 700 ml 300 ml 350 ml Exam Constitutional: alert, oriented Head: normocephalic Neck: supple Respiratory: normal air movement Cardiovascular: nl pulses Gastrointestinal: non-tender, soft Genitourinary - Female: other (Kothari catheter) Extremities: normal pulses Neurological: nl mental status Skin: nl turgor Additional Comments Status post left mastectomy Results Result Diagram: 11/08/16 0435 11/08/16 0435 Results 24 hrs Laboratory Tests Test 11/08/16 04:35 White Blood Count 5.3 Red Blood Count 4.13 L Hemoglobin 10.5 L Hematocrit 32.9 L Mean Corpuscular Volume 79.7 L Mean Corpuscular Hemoglobin 25.4 L Mean Corpuscular Hemoglobin Concent 31.9 L Red Cell Distribution Width 13.2 Platelet Count 277 Mean Platelet Volume 9.8 Neutrophils % 43.2 Lymphocytes % 44.3 Monocytes % 8.1 Eosinophils % 4.0 Basophils % 0.2 Nucleated Red Blood Cells % 0.0 Neutrophils # (Manual) 2.3 Lymphocytes # 2.4 Monocytes # 0.4 Eosinophils # 0.2 Basophils # 0.0 Nucleated Red Blood Cells # 0.0 Sodium Level 148 H Potassium Level 3.8 Chloride Level 106 Carbon Dioxide Level 28 Anion Gap 18 H Blood Urea Nitrogen 7 Creatinine 0.85 Glucose Level 126 # Calcium Level 8.5 Medications Medications Current Medications Dextrose/Sodium Chloride (D5-1/2ns) 1,000 ml @ 75 mls/hr [id number] IV Last administered on 11/08/16 03:12; Admin Dose 75 MLS/HR; Start 11/06/16 at 23:40 Ondansetron HCl (Zofran Inj) 4 mg Q6H PRN IV NAUSEA AND/OR VOMITING; Start at 00:00 Acetaminophen (Tylenol Tab) 650 mg Q6H PRN PO PAIN LEVEL 1-3 OR FEVER Last administered on 11/08/16 05:23; Admin Dose 650 MG; Start 11/07/16 at 00:00 Acetaminophen/ Hydrocodone Bitart ([place] (5/325)) 1 tab Q6H PRN PO MODERATE PAIN LEVEL 4-6; Start 11/07/16 at 00:00 Morphine Sulfate (morphine) 2 mg Q4H PRN IV SEVERE PAIN LEVEL 7-10; Start 11/07 at 00:00 Docusate Sodium (Colace) 100 mg Q12H PRN PO CONSTIPATION Last administered on 22:57; Admin Dose 100 MG; Start 11/07/16 at 00:00 Magnesium Hydroxide (Milk Of Mag) 30 ml DAILY PRN PO CONSTIPATION; Start at 00:00 Bisacodyl (Dulcolax) 5 mg DAILY PRN PO CONSTIPATION; Start 11/07/16 at 00:00 Zolpidem Tartrate (Ambien) 5 mg QHS PRN PO SLEEP; Start 11/07/16 at 00:00 Famotidine (Pepcid) 20 mg Q12 PO Last administered on 11/08/16 08:26; Admin Dose 20 MG; Start 11/07/16 at 09:00 Enoxaparin Sodium 30 mg 30 mg DAILY SC Last administered on 11/08/16 08:32; Admin Dose 30 MG; Start 11/07/16 at 09:00 Piperacillin Sod/ Tazobactam Sod (Zosyn 3.375gm/ 100 ml (Pmx)) 100 ml @ 200 mls /hr Q6 IVPB Last administered on 11/08/16 13:16; Admin Dose 200 MLS/HR; Start 11/07/16 at 02:00 Tamoxifen Citrate (Nolvadex) 20 mg 21 PO Last administered on 11/07/16 22:33; Admin Dose 20 MG; Start 11/07/16 at 21:00 Metoprolol Tartrate (Lopressor) 50 mg BID PO Last administered on 11/08/16 08: 27; Admin Dose 50 MG; Start 11/07/16 at 21:00 CHIOMA LAGUERRE Nov 08, 2016 15:08
--- NOTE | 2016-11-08 16:10 | RADRPT ---
PROCEDURE: Chest xray. CLINICAL INDICATION: None provided. TECHNIQUE: Upright PA and lateral views of the chest were obtained. COMPARISON: None available. FINDINGS: The cardiomediastinal silhouette is within normal limits. The lungs are well expanded and show norm al vascularity. No focal opacity, pleural effusion, or pneumothorax is identified. The skeletal st ructures are unremarkable. 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 There are surgical clips pr ojecting in the left chest. IMPRESSION: No acute intrathoracic abnormality. Left breast metal solderer. RPTAT:PP .Pati Washington MD, MD Date Time Electronically viewed and signed by .Pati Washington MD, on 11/08/2016 16:10 .K/
[2016-11-08] MEDS: FLUCONAZOLE 100 MG TAB PO SCH (16:13)
--- NOTE | 2016-11-08 17:13 | RADRPT ---
Vent Rate: 71 bpm RR Interval: 0 msec LA Interval: 148 msec QRS Duration: 72 msec QT Interval: 398 msec QTC Interval: 432 msec P-R-T [place]: 46 - 33 - 35 degrees Normal sinus rhythm Low voltage QRS Cannot rule out Anterior infarct , age undetermined Abnormal ECG Electronically Signed By: Jan Ross [id number]
--- NOTE | 2016-11-08 18:31 | PN ---
Date/Time of Note Date/Time of Note DATE: 11/08/16 TIME: 18:24 Assessment/Plan VTE Prophylaxis VTE Prophylaxis Intervention: ambulation, SCD's Lines/Catheters IV Catheter Type (from [facility]): Peripheral IV Urinary Cath still in place: Yes Reason Cath still needed: other (indicate) (We need to keep the bladder empty so no urine reflux into the left ureteral stent and goes into the area that the ureter has a fistula with the vagina) Assessment/Plan Chief Complaint/Hosp Course Right hydronephrosis, right ureteral JJ stent with the proximal curl in the upper ureter rather than in the kidney. 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 Urine culture is pending The patient is a 51-year-old female who underwent laparoscopic hysterectomy in August and had bilateral ureteral JJ stents placed. She has been having pain and nausea and incontinence of the urine however she is not certain whether the urine is coming from the vagina or from the urethra as she has urgency and urgency incontinence and that could be also irritation of her bladder by the JJ stents. We'll cover her with antibiotic at the present and keep the Kothari catheter in. Then on Friday we'll do a cystoscopy, remove both stents and do retrograde pyelograms and if there is any leakage from the left ureter insert a new left ureteral JJ stent (Scheduled for 5:30pm Friday) Problems: Subjective 24 Hr Interval Summary Constitutional: no complaints Eyes: no complaints ENT: no complaints Respiratory: no complaints Cardiovascular: no complaints Gastrointestinal: no complaints Genitourinary: other (Kothari in place and draining clear urine), No bleeding, No hematuria Musculoskeletal: no complaints Skin: no complaints Neurologic: no complaints Endocrine: no complaints Lymphatic: no complaints Psychological: no complaints Exam/Review of Systems Vital Signs Vitals Vital Signs Date Time Temp Pulse Resp B/P Pulse Ox O2 Delivery O2 Flow Rate FiO2 11/08/16 14:00 97.0 71 18 121/61 97 11/07/16 00:18 Room Air Intake and Output 11/07/16 11/07/16 11/08/16 15:00 23:00 07:00 Intake Total 700 ml 300 ml 1450 ml Output Total 1100 ml Balance 700 ml 300 ml 350 ml Exam Constitutional: alert, oriented Psych: no complaints Head: atraumatic Eyes: nl conjunctiva ENMT: nl external ears & nose Neck: supple Respiratory: normal air movement Cardiovascular: regular rate and rhythm Gastrointestinal: soft Genitourinary - Female: other (Kothari in place and draining clear urine), No CVA tenderness Musculoskeletal: nl extremities to inspection Extremities: No calf tenderness, No edema, No tenderness Skin: nl turgor Results I reviewed the CT scan that she had at the [facility] with the radiologist and that showed the right hydronephrosis because of the proximal curl of the JJ stent is not in the kidney but it is in the upper right ureter. Patient does have contrast material coming out of the distal left ureter and trickling toward the vagina. This is very small and we hope that it will close up by itself however for it to close up we need the bladder to be completely empty at all time so no urine with reflux into the ureteral catheter and leak through the opening of the ureter. Therefore we shall leave the Kothari catheter in. Result Diagram: 11/08/16 0435 11/08/16 0435 Results 24 hrs Laboratory Tests Test 11/08/16 04:35 White Blood Count 5.3 Red Blood Count 4.13 L Hemoglobin 10.5 L Hematocrit 32.9 L Mean Corpuscular Volume 79.7 L Mean Corpuscular Hemoglobin 25.4 L Mean Corpuscular Hemoglobin Concent 31.9 L Red Cell Distribution Width 13.2 Platelet Count 277 Mean Platelet Volume 9.8 Neutrophils % 43.2 Lymphocytes % 44.3 Monocytes % 8.1 Eosinophils % 4.0 Basophils % 0.2 Nucleated Red Blood Cells % 0.0 Neutrophils # (Manual) 2.3 Lymphocytes # 2.4 Monocytes # 0.4 Eosinophils # 0.2 Basophils # 0.0 Nucleated Red Blood Cells # 0.0 Sodium Level 148 H Potassium Level 3.8 Chloride Level 106 Carbon Dioxide Level 28 Anion Gap 18 H Blood Urea Nitrogen 7 Creatinine 0.85 Glucose Level 126 # Calcium Level 8.5 Medications Medications Current Medications Dextrose/Sodium Chloride (D5-1/2ns) 1,000 ml @ 75 mls/hr [id number] IV Last administered on 11/08/16 03:12; Admin Dose 75 MLS/HR; Start 11/06/16 at 23:40 Ondansetron HCl (Zofran Inj) 4 mg Q6H PRN IV NAUSEA AND/OR VOMITING; Start at 00:00 Acetaminophen (Tylenol Tab) 650 mg Q6H PRN PO PAIN LEVEL 1-3 OR FEVER Last administered on 11/08/16 05:23; Admin Dose 650 MG; Start 11/07/16 at 00:00 Acetaminophen/ Hydrocodone Bitart ([place] (5/325)) 1 tab Q6H PRN PO MODERATE PAIN LEVEL 4-6; Start 11/07/16 at 00:00 Morphine Sulfate (morphine) 2 mg Q4H PRN IV SEVERE PAIN LEVEL 7-10; Start 11/07 at 00:00 Docusate Sodium (Colace) 100 mg Q12H PRN PO CONSTIPATION Last administered on 22:57; Admin Dose 100 MG; Start 11/07/16 at 00:00 Magnesium Hydroxide (Milk Of Mag) 30 ml DAILY PRN PO CONSTIPATION; Start at 00:00 Bisacodyl (Dulcolax) 5 mg DAILY PRN PO CONSTIPATION; Start 11/07/16 at 00:00 Zolpidem Tartrate (Ambien) 5 mg QHS PRN PO SLEEP; Start 11/07/16 at 00:00 Famotidine (Pepcid) 20 mg Q12 PO Last administered on 11/08/16 08:26; Admin Dose 20 MG; Start 11/07/16 at 09:00 Enoxaparin Sodium 30 mg 30 mg DAILY SC Last administered on 11/08/16 08:32; Admin Dose 30 MG; Start 11/07/16 at 09:00 Piperacillin Sod/ Tazobactam Sod (Zosyn 3.375gm/ 100 ml (Pmx)) 100 ml @ 200 mls /hr Q6 IVPB Last administered on 11/08/16 13:16; Admin Dose 200 MLS/HR; Start 11/07/16 at 02:00 Tamoxifen Citrate (Nolvadex) 20 mg 21 PO Last administered on 11/07/16 22:33; Admin Dose 20 MG; Start 11/07/16 at 21:00 Metoprolol Tartrate (Lopressor) 50 mg BID PO Last administered on 11/08/16 08: 27; Admin Dose 50 MG; Start 11/07/16 at 21:00 Fluconazole (Diflucan) 100 mg DAILY PO Last administered on 11/08/16 16:13; Admin Dose 100 MG; Start 11/08/16 at 15:30 ISIDORO BROWN MD Nov 08, 2016 18:31
[2016-11-08 20:16] VITALS: BP 145/81; PULSE 67; RESP 17
[2016-11-08] MEDS: TAMOXIFEN 10 MG TAB PO SCH (20:20)
[2016-11-09 02:00] VITALS: BP 130/60; PULSE 64; RESP 20
[2016-11-09] MEDS: DEXTROSE 5%-0.45% NACL 1,000 ML IV SCH ×2 (05:00→14:40)
[2016-11-09 05:28] LABS: BASOPHILS % 0.3 % (0.0-2.0); EOSINOPHILS # 0.2 10^3/ul (0.0-0.5); EOSINOPHILS % 3.7 % (0.0-7.0); HEMATOCRIT 34.1 % (37.0-47.0); HEMOGLOBIN 10.6 g/dl (12.0-16.0); LYMPHOCYTES # 2.8 10^3/ul (0.8-2.9); LYMPHOCYTES % 44.1 % (15.0-51.0); MEAN CORPUSCULAR HEMOGLOBIN 24.7 pg (29.0-33.0); MEAN CORPUSCULAR HGB CONC 31.1 g/dl (32.0-37.0); MEAN CORPUSCULAR VOLUME 79.3 fl (82.0-101.0); MEAN PLATELET VOLUME 9.9 fl (7.4-10.4); MONOCYTE # 0.4 10^3/ul (0.3-0.9); MONOCYTES % 6.2 % (0.0-11.0); NEUTROPHILS % 45.2 % (39.0-77.0); PLATELET COUNT 310 10^3/UL (140-415); RED CELL DISTRIBUTION WIDTH 13.4 % (11.5-14.5); WHITE BLOOD COUNT 6.4 10^3/ul (4.8-10.8)
[2016-11-09 05:35] LABS: CALCIUM 8.8 mg/dl (8.4-10.2); CREATININE 0.89 mg/dl (0.44-1.00); POTASSIUM 3.9 mmol/L (3.5-5.1)
[2016-11-09] MEDS: PIPER-TAZO 3.375 GM IV (PMX) 100 ML IVPB SCH ×5 (06:00→23:55)
[2016-11-09 07:00] VITALS: BP 129/73; RESP 18
[2016-11-09] MEDS: FLUCONAZOLE 100 MG TAB PO SCH ×2 (08:39→10:28)
[2016-11-09] MEDS: FAMOTIDINE 20 MG TAB PO SCH (08:39)
[2016-11-09] MEDS: METOPROLOL 50 MG TAB PO SCH ×2 (08:39→20:54)
[2016-11-09] MEDS: ENOXAPARIN 30 MG/0.3 ML SYG SC SCH (09:02)
[2016-11-09 14:00] VITALS: BP 127/85; RESP 20
--- NOTE | 2016-11-09 15:38 | PN ---
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 Dr. Austin is following in urology consultation. Plan for cystoscopy was removal of J stent possible pyelogram on Friday. - Urinary tract infection, cultures positive for yeast will start Diflucan -Status post laparoscopic hysterectomy and bilateral salpingo-oophorectomy in August 2016 - Hx of Left breast cancer status post mastectomy with tissue laser specialist placement. Patient is currently continued on tamoxifen. Further recommendations based on clinical course. Plan of care discussed with Dr. Malik. Subjective 24 Hr Interval Summary Free Text/Dictation c/o upset stomach, denies any other complaints, dw staff. Respiratory: no complaints Cardiovascular: no complaints Gastrointestinal: no complaints Genitourinary: no complaints Musculoskeletal: no complaints Exam/Review of Systems Vital Signs Vitals Vital Signs Date Time Temp Pulse Resp B/P Pulse Ox O2 Delivery O2 Flow Rate FiO2 11/09/16 14:00 98.7 66 20 127/85 98 11/09/16 02:00 Room Air Intake and Output 11/08/16 11/08/16 11/09/16 15:00 23:00 07:00 Intake Total 100 ml 1785 ml 850 ml Output Total 1100 ml 2500 ml Balance 100 ml 685 ml -1650 ml Exam Constitutional: alert, oriented, well developed Respiratory: clear to auscultation Cardiovascular: nl pulses, regular rate and rhythm Gastrointestinal: non-tender, soft Musculoskeletal: nl extremities to inspection Extremities: normal pulses Neurological: nl mental status, nl speech Results Result Diagram: 11/09/16 0500 11/09/16 0500 Results 24 hrs Laboratory Tests Test 11/09/16 05:00 White Blood Count 6.4 # Red Blood Count 4.30 Hemoglobin 10.6 L Hematocrit 34.1 L Mean Corpuscular Volume 79.3 L Mean Corpuscular Hemoglobin 24.7 L Mean Corpuscular Hemoglobin Concent 31.1 L Red Cell Distribution Width 13.4 Platelet Count 310 Mean Platelet Volume 9.9 Neutrophils % 45.2 Lymphocytes % 44.1 Monocytes % 6.2 Eosinophils % 3.7 Basophils % 0.3 Nucleated Red Blood Cells % 0.0 Neutrophils # (Manual) 2.9 Lymphocytes # 2.8 Monocytes # 0.4 Eosinophils # 0.2 Basophils # 0.0 Nucleated Red Blood Cells # 0.0 Sodium Level 148 H Potassium Level 3.9 Chloride Level 108 Carbon Dioxide Level 27 Anion Gap 17 H Blood Urea Nitrogen 7 Creatinine 0.89 Glucose Level 120 Calcium Level 8.8 Medications Medications Current Medications Dextrose/Sodium Chloride (D5-1/2ns) 1,000 ml @ 75 mls/hr [id number] IV Last administered on 11/09/16 14:40; Admin Dose 75 MLS/HR; Start 11/06/16 at 23:40 Ondansetron HCl (Zofran Inj) 4 mg Q6H PRN IV NAUSEA AND/OR VOMITING; Start at 00:00 Acetaminophen (Tylenol Tab) 650 mg Q6H PRN PO PAIN LEVEL 1-3 OR FEVER Last administered on 11/08/16 23:20; Admin Dose 650 MG; Start 11/07/16 at 00:00 Acetaminophen/ Hydrocodone Bitart ([place] (5/325)) 1 tab Q6H PRN PO MODERATE PAIN LEVEL 4-6; Start 11/07/16 at 00:00 Morphine Sulfate (morphine) 2 mg Q4H PRN IV SEVERE PAIN LEVEL 7-10; Start 11/07 at 00:00 Docusate Sodium (Colace) 100 mg Q12H PRN PO CONSTIPATION Last administered on 22:57; Admin Dose 100 MG; Start 11/07/16 at 00:00 Magnesium Hydroxide (Milk Of Mag) 30 ml DAILY PRN PO CONSTIPATION; Start at 00:00 Bisacodyl (Dulcolax) 5 mg DAILY PRN PO CONSTIPATION; Start 11/07/16 at 00:00 Zolpidem Tartrate (Ambien) 5 mg QHS PRN PO SLEEP; Start 11/07/16 at 00:00 Famotidine (Pepcid) 20 mg Q12 PO Last administered on 11/09/16 08:39; Admin Dose 20 MG; Start 11/07/16 at 09:00 Enoxaparin Sodium 30 mg 30 mg DAILY SC Last administered on 11/09/16 09:02; Admin Dose 30 MG; Start 11/07/16 at 09:00 Piperacillin Sod/ Tazobactam Sod (Zosyn 3.375gm/ 100 ml (Pmx)) 100 ml @ 200 mls /hr Q6 IVPB Last administered on 11/09/16 12:42; Admin Dose 200 MLS/HR; Start 11/07/16 at 02:00 Tamoxifen Citrate (Nolvadex) 20 mg 21 PO Last administered on 11/08/16 20:20; Admin Dose 20 MG; Start 11/07/16 at 21:00 Metoprolol Tartrate (Lopressor) 50 mg BID PO Last administered on 11/09/16 08: 39; Admin Dose 50 MG; Start 11/07/16 at 21:00 Fluconazole (Diflucan) 100 mg DAILY PO Last administered on 11/09/16 08:39; Admin Dose 100 MG; Start 11/08/16 at 15:30 Fluconazole (Diflucan) 100 mg DAILY PO ; Start 11/09/16 at 10:30 Pantoprazole (Protonix Tab) 40 mg DAILY@06 PO ; Start 11/09/16 at 15:00 HOWARD ALVARES Nov 09, 2016 15:38
[2016-11-09 20:00] VITALS: BP 147/88; PULSE 71; RESP 18
[2016-11-09] MEDS: PANTOPRAZOLE (EC) 40 MG TAB PO SCH (20:53)
[2016-11-09] MEDS: TAMOXIFEN 10 MG TAB PO SCH (20:57)
[2016-11-10 03:03] VITALS: BP 131/76; RESP 19
[2016-11-10] MEDS: PANTOPRAZOLE (EC) 40 MG TAB PO SCH (05:23)
[2016-11-10] MEDS: DEXTROSE 5%-0.45% NACL 1,000 ML IV SCH ×2 (05:23→21:16)
[2016-11-10] MEDS: PIPER-TAZO 3.375 GM IV (PMX) 100 ML IVPB SCH ×4 (05:23→23:30)
[2016-11-10 06:57] LABS: BASOPHILS % 0.3 % (0.0-2.0); EOSINOPHILS # 0.3 10^3/ul (0.0-0.5); EOSINOPHILS % 4.1 % (0.0-7.0); HEMATOCRIT 32.1 % (37.0-47.0); HEMOGLOBIN 10.3 g/dl (12.0-16.0); LYMPHOCYTES # 2.8 10^3/ul (0.8-2.9); LYMPHOCYTES % 41.6 % (15.0-51.0); MEAN CORPUSCULAR HEMOGLOBIN 25.6 pg (29.0-33.0); MEAN CORPUSCULAR HGB CONC 32.1 g/dl (32.0-37.0); MEAN CORPUSCULAR VOLUME 79.9 fl (82.0-101.0); MONOCYTE # 0.5 10^3/ul (0.3-0.9); NEUTROPHILS % 46.6 % (39.0-77.0); PLATELET COUNT 314 10^3/UL (140-415); RED BLOOD COUNT 4.02 10^6/ul (4.20-5.40); RED CELL DISTRIBUTION WIDTH 13.2 % (11.5-14.5); WHITE BLOOD COUNT 6.8 10^3/ul (4.8-10.8)
[2016-11-10 07:16] LABS: CALCIUM 7.8 mg/dl (8.4-10.2); CREATININE 0.82 mg/dl (0.44-1.00); POTASSIUM 3.5 mmol/L (3.5-5.1)
[2016-11-10 08:02] VITALS: BP 125/77; RESP 18
[2016-11-10] MEDS: METOPROLOL 50 MG TAB PO SCH ×2 (08:31→20:36)
[2016-11-10] MEDS: FLUCONAZOLE 100 MG TAB PO SCH ×2 (08:32)
[2016-11-10] MEDS: ENOXAPARIN 30 MG/0.3 ML SYG SC SCH (08:38)
[2016-11-10 15:32] VITALS: BP 124/76; RESP 20
--- NOTE | 2016-11-10 16:42 | PN ---
Date/Time of Note Date/Time of Note DATE: 11/10/16 TIME: 16:40 Assessment/Plan VTE Prophylaxis VTE Prophylaxis Intervention: SCD's Lines/Catheters IV Catheter Type (from [facility]): Peripheral IV Urinary Cath still in place: Yes Reason Cath still needed: other (indicate) Assessment/Plan Chief Complaint/Hosp Course admitted with right hydroureter and rt stent coming out of place and both in 11 wks; left small fistula vs leakage due to irritation Problems: Assessment/Plan A- doing same; Dr. Austin appreciated Subjective 24 Hr Interval Summary Free Text/Dictation Feels about the same/slightly less pain but presacral right CVAT Exam/Review of Systems Vital Signs Vitals Vital Signs Date Time Temp Pulse Resp B/P Pulse Ox O2 Delivery O2 Flow Rate FiO2 11/10/16 15:32 98.1 65 20 124/76 99 11/09/16 20:00 Room Air Intake and Output 11/09/16 11/09/16 11/10/16 15:00 23:00 07:00 Intake Total 1100 ml 1523 ml 2100 ml Output Total 2000 ml 2100 ml Balance 1100 ml -477 ml 0 ml Exam Resp- clear CVS- NSR Abd- soft mild CVAT R>L Ext - NT' no edema Results Result Diagram: 11/10/16 0458 11/10/16 0458 Results 24 hrs Laboratory Tests Test 11/10/16 04:58 11/10/16 08:29 White Blood Count 6.8 Red Blood Count 4.02 L Hemoglobin 10.3 L Hematocrit 32.1 L Mean Corpuscular Volume 79.9 L Mean Corpuscular Hemoglobin 25.6 L Mean Corpuscular Hemoglobin Concent 32.1 Red Cell Distribution Width 13.2 Platelet Count 314 Mean Platelet Volume 10.0 Neutrophils % 46.6 Lymphocytes % 41.6 Monocytes % 7.0 Eosinophils % 4.1 Basophils % 0.3 Nucleated Red Blood Cells % 0.0 Neutrophils # (Manual) 3.2 Lymphocytes # 2.8 Monocytes # 0.5 Eosinophils # 0.3 Basophils # 0.0 Nucleated Red Blood Cells # 0.0 Sodium Level 142 Potassium Level 3.5 Chloride Level 104 Carbon Dioxide Level 24 Anion Gap 18 H Blood Urea Nitrogen 7 Creatinine 0.82 Glucose Level 436 #*H Calcium Level 7.8 L Bedside Glucose 118 Medications Medications Current Medications Dextrose/Sodium Chloride (D5-1/2ns) 1,000 ml @ 75 mls/hr [id number] IV Last administered on 11/10/16 05:23; Admin Dose 75 MLS/HR; Start 11/06/16 at 23:40 Ondansetron HCl (Zofran Inj) 4 mg Q6H PRN IV NAUSEA AND/OR VOMITING; Start at 00:00 Acetaminophen (Tylenol Tab) 650 mg Q6H PRN PO PAIN LEVEL 1-3 OR FEVER Last administered on 11/08/16 23:20; Admin Dose 650 MG; Start 11/07/16 at 00:00 Acetaminophen/ Hydrocodone Bitart ([place] (5/325)) 1 tab Q6H PRN PO MODERATE PAIN LEVEL 4-6; Start 11/07/16 at 00:00 Morphine Sulfate (morphine) 2 mg Q4H PRN IV SEVERE PAIN LEVEL 7-10; Start 11/07 at 00:00 Docusate Sodium (Colace) 100 mg Q12H PRN PO CONSTIPATION Last administered on 22:57; Admin Dose 100 MG; Start 11/07/16 at 00:00 Magnesium Hydroxide (Milk Of Mag) 30 ml DAILY PRN PO CONSTIPATION; Start at 00:00 Bisacodyl (Dulcolax) 5 mg DAILY PRN PO CONSTIPATION; Start 11/07/16 at 00:00 Zolpidem Tartrate (Ambien) 5 mg QHS PRN PO SLEEP; Start 11/07/16 at 00:00 Enoxaparin Sodium 30 mg 30 mg DAILY SC Last administered on 11/10/16 08:38; Admin Dose 30 MG; Start 11/07/16 at 09:00 Piperacillin Sod/ Tazobactam Sod (Zosyn 3.375gm/ 100 ml (Pmx)) 100 ml @ 200 mls /hr Q6 IVPB Last administered on 11/10/16 12:36; Admin Dose 200 MLS/HR; Start 11/07/16 at 02:00 Tamoxifen Citrate (Nolvadex) 20 mg 21 PO Last administered on 11/09/16 20:57; Admin Dose 20 MG; Start 11/07/16 at 21:00 Metoprolol Tartrate (Lopressor) 50 mg BID PO Last administered on 11/10/16 08: 31; Admin Dose 50 MG; Start 11/07/16 at 21:00 Fluconazole (Diflucan) 100 mg DAILY PO Last administered on 11/10/16 08:32; Admin Dose 100 MG; Start 11/08/16 at 15:30 Pantoprazole (Protonix Tab) 40 mg DAILY@06 PO Last administered on 11/10/16 05 :23; Admin Dose 40 MG; Start 11/09/16 at 15:00 MARILEE TOLBERT MD Nov 10, 2016 16:42
[2016-11-10] MEDS: ACETAMINOPHEN 325 MG TAB PO PRN (18:11)
--- NOTE | 2016-11-10 19:14 | PN ---
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 - Dr. Austin is following in urology consultation. - Plan for cystoscopy was removal of J stent possible pyelogram on Friday. - Urinary tract infection, cultures positive for yeast will start Diflucan -Status post laparoscopic hysterectomy and bilateral salpingo-oophorectomy in August 2016 - Hx of Left breast cancer status post mastectomy with tissue drill operator placement. Patient is currently continued on tamoxifen. Further recommendations based on clinical course. Plan of care discussed with Dr. Malik. Subjective 24 Hr Interval Summary Free Text/Dictation Plan for cystoscopy was removal of J stent possible pyelogram tomorrow.. dw staff Respiratory: no complaints Cardiovascular: no complaints Genitourinary: flank pain (right sided flank pain) Musculoskeletal: no complaints Skin: no complaints Exam/Review of Systems Vital Signs Vitals Vital Signs Date Time Temp Pulse Resp B/P Pulse Ox O2 Delivery O2 Flow Rate FiO2 11/10/16 15:32 98.1 65 20 124/76 99 11/09/16 20:00 Room Air Intake and Output 11/09/16 11/09/16 11/10/16 15:00 23:00 07:00 Intake Total 1100 ml 1523 ml 2100 ml Output Total 2000 ml 2100 ml Balance 1100 ml -477 ml 0 ml Exam Constitutional: alert, oriented, well developed Respiratory: clear to auscultation, normal air movement Cardiovascular: nl pulses, regular rate and rhythm Gastrointestinal: non-tender, soft Musculoskeletal: nl extremities to inspection Extremities: normal pulses Neurological: nl mental status, nl speech Results Result Diagram: 11/10/16 0458 11/10/16 0458 Results 24 hrs Laboratory Tests Test 11/10/16 04:58 11/10/16 08:29 White Blood Count 6.8 Red Blood Count 4.02 L Hemoglobin 10.3 L Hematocrit 32.1 L Mean Corpuscular Volume 79.9 L Mean Corpuscular Hemoglobin 25.6 L Mean Corpuscular Hemoglobin Concent 32.1 Red Cell Distribution Width 13.2 Platelet Count 314 Mean Platelet Volume 10.0 Neutrophils % 46.6 Lymphocytes % 41.6 Monocytes % 7.0 Eosinophils % 4.1 Basophils % 0.3 Nucleated Red Blood Cells % 0.0 Neutrophils # (Manual) 3.2 Lymphocytes # 2.8 Monocytes # 0.5 Eosinophils # 0.3 Basophils # 0.0 Nucleated Red Blood Cells # 0.0 Sodium Level 142 Potassium Level 3.5 Chloride Level 104 Carbon Dioxide Level 24 Anion Gap 18 H Blood Urea Nitrogen 7 Creatinine 0.82 Glucose Level 436 #*H Calcium Level 7.8 L Bedside Glucose 118 Medications Medications Current Medications Dextrose/Sodium Chloride (D5-1/2ns) 1,000 ml @ 75 mls/hr [id number] IV Last administered on 11/10/16 05:23; Admin Dose 75 MLS/HR; Start 11/06/16 at 23:40 Ondansetron HCl (Zofran Inj) 4 mg Q6H PRN IV NAUSEA AND/OR VOMITING Last administered on 11/10/16 18:11; Admin Dose 4 MG; Start 11/07/16 at 00:00 Acetaminophen (Tylenol Tab) 650 mg Q6H PRN PO PAIN LEVEL 1-3 OR FEVER Last administered on 11/10/16 18:11; Admin Dose 650 MG; Start 11/07/16 at 00:00 Acetaminophen/ Hydrocodone Bitart ([place] (5/325)) 1 tab Q6H PRN PO MODERATE PAIN LEVEL 4-6; Start 11/07/16 at 00:00 Morphine Sulfate (morphine) 2 mg Q4H PRN IV SEVERE PAIN LEVEL 7-10; Start 11/07 at 00:00 Docusate Sodium (Colace) 100 mg Q12H PRN PO CONSTIPATION Last administered on 22:57; Admin Dose 100 MG; Start 11/07/16 at 00:00 Magnesium Hydroxide (Milk Of Mag) 30 ml DAILY PRN PO CONSTIPATION; Start at 00:00 Bisacodyl (Dulcolax) 5 mg DAILY PRN PO CONSTIPATION; Start 11/07/16 at 00:00 Zolpidem Tartrate (Ambien) 5 mg QHS PRN PO SLEEP; Start 11/07/16 at 00:00 Enoxaparin Sodium 30 mg 30 mg DAILY SC Last administered on 11/10/16 08:38; Admin Dose 30 MG; Start 11/07/16 at 09:00 Piperacillin Sod/ Tazobactam Sod (Zosyn 3.375gm/ 100 ml (Pmx)) 100 ml @ 200 mls /hr Q6 IVPB Last administered on 11/10/16 18:08; Admin Dose 200 MLS/HR; Start 11/07/16 at 02:00 Tamoxifen Citrate (Nolvadex) 20 mg 21 PO Last administered on 11/09/16 20:57; Admin Dose 20 MG; Start 11/07/16 at 21:00 Metoprolol Tartrate (Lopressor) 50 mg BID PO Last administered on 11/10/16 08: 31; Admin Dose 50 MG; Start 11/07/16 at 21:00 Fluconazole (Diflucan) 100 mg DAILY PO Last administered on 11/10/16 08:32; Admin Dose 100 MG; Start 11/08/16 at 15:30 Pantoprazole (Protonix Tab) 40 mg DAILY@06 PO Last administered on 11/10/16 05 :23; Admin Dose 40 MG; Start 11/09/16 at 15:00 HOWARD ALVARES Nov 10, 2016 19:14
[2016-11-10 19:20] VITALS: BP 111/67; RESP 19
--- NOTE | 2016-11-10 20:19 | PN ---
Date/Time of Note Date/Time of Note DATE: 11/10/16 TIME: 20:13 Assessment/Plan VTE Prophylaxis VTE Prophylaxis Intervention: ambulation, SCD's Lines/Catheters IV Catheter Type (from [facility]): Peripheral IV Urinary Cath still in place: Yes Reason Cath still needed: other (indicate) (Possible left ureteral vaginal fistula, she needs the bladder to be empty all the time so urine does not reflux into the JJ stent and into the fistula) Assessment/Plan Chief Complaint/Hosp Course Right hydronephrosis, right ureteral JJ stent with the proximal curl in the upper ureter rather than in the kidney. 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 Urine culture showed Clementina glabrata The patient is a 51-year-old female who underwent laparoscopic hysterectomy in August and had bilateral ureteral JJ stents placed. She has been having pain and nausea and incontinence of the urine however she is not certain whether the urine was coming from the vagina or from the urethra as she has urgency and urgency incontinence and that could be also irritation of her bladder by the JJ stents. We'll cover her with antibiotic at the present and keep the Kothari catheter in. Then on Friday we'll do a cystoscopy, remove both stents and do retrograde pyelograms and if there is any leakage from the left ureter insert a new left ureteral JJ stent and a new Kothari catheter (Scheduled for 5:30pm Friday) Problems: Subjective 24 Hr Interval Summary Constitutional: no complaints Eyes: no complaints ENT: no complaints Respiratory: no complaints Cardiovascular: no complaints Gastrointestinal: no complaints Genitourinary: flank pain (Right flank radiating toward the right hip and thigh ) Musculoskeletal: back pain (Right side) Skin: no complaints Neurologic: no complaints Endocrine: no complaints Lymphatic: no complaints Exam/Review of Systems Vital Signs Vitals Vital Signs Date Time Temp Pulse Resp B/P Pulse Ox O2 Delivery O2 Flow Rate FiO2 11/10/16 19:20 99.0 69 19 111/67 99 11/09/16 20:00 Room Air Intake and Output 11/09/16 11/09/16 11/10/16 15:00 23:00 07:00 Intake Total 1100 ml 1523 ml 2100 ml Output Total 2000 ml 2100 ml Balance 1100 ml -477 ml 0 ml Exam Constitutional: alert, oriented Psych: no complaints Head: normocephalic Eyes: nl conjunctiva ENMT: nl external ears & nose Neck: non-tender, supple Respiratory: normal air movement Cardiovascular: nl pulses Gastrointestinal: non-tender, soft Genitourinary - Female: other (Kothari draining clear urine) Musculoskeletal: nl extremities to inspection Extremities: No calf tenderness, No edema, No tenderness Results Result Diagram: 11/10/16 0458 11/10/16 0458 Results 24 hrs Laboratory Tests Test 11/10/16 04:58 11/10/16 08:29 White Blood Count 6.8 Red Blood Count 4.02 L Hemoglobin 10.3 L Hematocrit 32.1 L Mean Corpuscular Volume 79.9 L Mean Corpuscular Hemoglobin 25.6 L Mean Corpuscular Hemoglobin Concent 32.1 Red Cell Distribution Width 13.2 Platelet Count 314 Mean Platelet Volume 10.0 Neutrophils % 46.6 Lymphocytes % 41.6 Monocytes % 7.0 Eosinophils % 4.1 Basophils % 0.3 Nucleated Red Blood Cells % 0.0 Neutrophils # (Manual) 3.2 Lymphocytes # 2.8 Monocytes # 0.5 Eosinophils # 0.3 Basophils # 0.0 Nucleated Red Blood Cells # 0.0 Sodium Level 142 Potassium Level 3.5 Chloride Level 104 Carbon Dioxide Level 24 Anion Gap 18 H Blood Urea Nitrogen 7 Creatinine 0.82 Glucose Level 436 #*H Calcium Level 7.8 L Bedside Glucose 118 Medications Medications Current Medications Dextrose/Sodium Chloride (D5-1/2ns) 1,000 ml @ 75 mls/hr [id number] IV Last administered on 11/10/16 05:23; Admin Dose 75 MLS/HR; Start 11/06/16 at 23:40 Ondansetron HCl (Zofran Inj) 4 mg Q6H PRN IV NAUSEA AND/OR VOMITING Last administered on 11/10/16 18:11; Admin Dose 4 MG; Start 11/07/16 at 00:00 Acetaminophen (Tylenol Tab) 650 mg Q6H PRN PO PAIN LEVEL 1-3 OR FEVER Last administered on 11/10/16 18:11; Admin Dose 650 MG; Start 11/07/16 at 00:00 Acetaminophen/ Hydrocodone Bitart ([place] (5/325)) 1 tab Q6H PRN PO MODERATE PAIN LEVEL 4-6; Start 11/07/16 at 00:00 Morphine Sulfate (morphine) 2 mg Q4H PRN IV SEVERE PAIN LEVEL 7-10; Start 11/07 at 00:00 Docusate Sodium (Colace) 100 mg Q12H PRN PO CONSTIPATION Last administered on 22:57; Admin Dose 100 MG; Start 11/07/16 at 00:00 Magnesium Hydroxide (Milk Of Mag) 30 ml DAILY PRN PO CONSTIPATION; Start at 00:00 Bisacodyl (Dulcolax) 5 mg DAILY PRN PO CONSTIPATION; Start 11/07/16 at 00:00 Zolpidem Tartrate (Ambien) 5 mg QHS PRN PO SLEEP; Start 11/07/16 at 00:00 Enoxaparin Sodium 30 mg 30 mg DAILY SC Last administered on 11/10/16 08:38; Admin Dose 30 MG; Start 11/07/16 at 09:00 Piperacillin Sod/ Tazobactam Sod (Zosyn 3.375gm/ 100 ml (Pmx)) 100 ml @ 200 mls /hr Q6 IVPB Last administered on 11/10/16 18:08; Admin Dose 200 MLS/HR; Start 11/07/16 at 02:00 Tamoxifen Citrate (Nolvadex) 20 mg 21 PO Last administered on 11/09/16 20:57; Admin Dose 20 MG; Start 11/07/16 at 21:00 Metoprolol Tartrate (Lopressor) 50 mg BID PO Last administered on 11/10/16 08: 31; Admin Dose 50 MG; Start 11/07/16 at 21:00 Fluconazole (Diflucan) 100 mg DAILY PO Last administered on 11/10/16 08:32; Admin Dose 100 MG; Start 11/08/16 at 15:30 Pantoprazole (Protonix Tab) 40 mg DAILY@06 PO Last administered on 11/10/16 05 :23; Admin Dose 40 MG; Start 11/09/16 at 15:00 Procedures Procedures Plan to do a cystoscopy and remove the 2 JJ stents that she has. Do bilateral retrograde pyelograms. Insert a new left ureteral JJ stent and keep Kothari catheter in. ISIDORO BROWN MD Nov 10, 2016 20:19
[2016-11-10] MEDS: TAMOXIFEN 10 MG TAB PO SCH (20:40)
[2016-11-11] VITALS (7 sets, daily range): BP systolic 112–158; BP diastolic 74–91; PULSE 70–94; RESP 9–20
[2016-11-11] MEDS: PIPER-TAZO 3.375 GM IV (PMX) 100 ML IVPB SCH ×2 (05:20→12:17)
[2016-11-11] MEDS: PANTOPRAZOLE (EC) 40 MG TAB PO SCH (05:20)
[2016-11-11] MEDS: ENOXAPARIN 30 MG/0.3 ML SYG SC SCH (08:01)
[2016-11-11] MEDS: METOPROLOL 50 MG TAB PO SCH ×2 (09:00→20:31)
[2016-11-11] MEDS: FLUCONAZOLE 100 MG TAB PO SCH (09:00)
[2016-11-11] MEDS: DEXTROSE 5%-0.45% NACL 1,000 ML IV SCH ×2 (12:17→23:40)
--- NOTE | 2016-11-11 16:11 | PN ---
Date/Time of Note Date/Time of Note DATE: 11/11/16 TIME: 16:05 Assessment/Plan VTE Prophylaxis VTE Prophylaxis Intervention: SCD's Lines/Catheters [facility] Peripheral IV Urinary Cath still in place: Yes Reason Cath still needed: urinary retention Assessment/Plan Chief Complaint/Hosp Course Patient awaits cystoscopy today, acute events overnight. 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 Dr. Austin is following in urology consultation. Plan for cystoscopy was removal of J stent possible pyelogram. -Clementina glabrata urinary tract infection, continue Diflucan. -Status post laparoscopic hysterectomy and bilateral salpingo-oophorectomy in August 2016 - Hx of Left breast cancer status post mastectomy with tissue heel seat fitter machine placement. Patient is currently continued on tamoxifen. Further recommendations based on clinical course. Plan of care discussed with Dr. Malik. Problems: Exam/Review of Systems Vital Signs Vitals Vital Signs Date Time Temp Pulse Resp B/P Pulse Ox O2 Delivery O2 Flow Rate FiO2 11/11/16 15:06 98.5 65 16 158/90 97 11/09/16 20:00 Room Air Intake and Output 11/10/16 11/10/16 11/11/16 14:59 22:59 06:59 Intake Total 1600 ml 1150 ml Output Total 1700 ml 2900 ml Balance -100 ml -1750 ml Exam Constitutional: alert, oriented Head: normocephalic Neck: supple Respiratory: normal air movement Cardiovascular: nl pulses Gastrointestinal: non-tender, soft Genitourinary - Female: other (Kothari catheter) Extremities: normal pulses Neurological: nl mental status Skin: nl turgor Additional Comments Status post left mastectomy Results Result Diagram: 11/10/16 0458 11/10/16 0458 Medications Medications Current Medications Dextrose/Sodium Chloride (D5-1/2ns) 1,000 ml @ 75 mls/hr [id number] IV Last administered on 11/11/16 12:17; Admin Dose 75 MLS/HR; Start 11/06/16 at 23:40 Ondansetron HCl (Zofran Inj) 4 mg Q6H PRN IV NAUSEA AND/OR VOMITING Last administered on 11/10/16 18:11; Admin Dose 4 MG; Start 11/07/16 at 00:00 Acetaminophen (Tylenol Tab) 650 mg Q6H PRN PO PAIN LEVEL 1-3 OR FEVER Last administered on 11/10/16 18:11; Admin Dose 650 MG; Start 11/07/16 at 00:00 Acetaminophen/ Hydrocodone Bitart ([place] (5/325)) 1 tab Q6H PRN PO MODERATE PAIN LEVEL 4-6; Start 11/07/16 at 00:00 Morphine Sulfate (morphine) 2 mg Q4H PRN IV SEVERE PAIN LEVEL 7-10; Start 11/07 at 00:00 Docusate Sodium (Colace) 100 mg Q12H PRN PO CONSTIPATION Last administered on 22:57; Admin Dose 100 MG; Start 11/07/16 at 00:00 Magnesium Hydroxide (Milk Of Mag) 30 ml DAILY PRN PO CONSTIPATION; Start at 00:00 Bisacodyl (Dulcolax) 5 mg DAILY PRN PO CONSTIPATION; Start 11/07/16 at 00:00 Zolpidem Tartrate (Ambien) 5 mg QHS PRN PO SLEEP; Start 11/07/16 at 00:00 Enoxaparin Sodium (Lovenox) 30 mg DAILY SC Last administered on 11/10/16 08:38 ; Admin Dose 30 MG; Start 11/07/16 at 09:00 Tamoxifen Citrate (Nolvadex) 20 mg 21 PO Last administered on 11/10/16 20:40; Admin Dose 20 MG; Start 11/07/16 at 21:00 Metoprolol Tartrate (Lopressor) 50 mg BID PO Last administered on 11/10/16 20: 36; Admin Dose 50 MG; Start 11/07/16 at 21:00 Pantoprazole (Protonix Tab) 40 mg DAILY@06 PO Last administered on 11/11/16 05 :20; Admin Dose 40 MG; Start 11/09/16 at 15:00 CHIOMA LAGUERRE Nov 11, 2016 16:11
[2016-11-11] MEDS ORDERED: FENTAnyl 50 MCG/ML VIAL ONE (17:23)
[2016-11-11] MEDS ORDERED: PROPOFOL 20 ML ONE ×2 (17:23→18:33)
[2016-11-11] MEDS ORDERED: CEFAZOLIN 1 GM INJ ONE (17:23)
[2016-11-11] MEDS ORDERED: MIDAZOLAM 1 MG/ML 2 ML INJ ONE (17:23)
[2016-11-11] MEDS ORDERED: LIDOCAINE 2% 20 ML UROJET SYRINGE ONE (17:31)
--- NOTE | 2016-11-11 17:41 | HPN ---
Date/Time of Note Date/Time of Note DATE: 11/11/16 TIME: 17:41 Interval H&P Admission Note Pt. seen H&P reviewed: No system changes ISIDORO BROWN MD Nov 11, 2016 17:41
[2016-11-11] MEDS ORDERED: IOHEXOL 300MG/ML 30 ML BTL ONE (18:05)
[2016-11-11] MEDS ORDERED: ROCURONIUM 50 MG INJ ONE (18:12)
[2016-11-11] MEDS ORDERED: ONDANSETRON 4 MG INJ ONE (18:12)
[2016-11-11] MEDS ORDERED: KETOROLAC 30 MG INJ ONE (18:12)
[2016-11-11] MEDS ORDERED: METOCLOPRAMIDE 10 MG INJ ONE (18:12)
[2016-11-11] MEDS ORDERED: DEXAMETHASONE 4 MG/ML 1 ML INJ ONE (18:12)
[2016-11-11] MEDS ORDERED: LABETALOL HCL 20MG INJ IV PRN (18:30)
[2016-11-11] MEDS ORDERED: METOCLOPRAMIDE 10 MG INJ IV PRN (18:30)
[2016-11-11] MEDS ORDERED: DIPHENHYDRAMINE 50 MG INJ IV PRN (18:30)
[2016-11-11] MEDS ORDERED: ONDANSETRON 4 MG INJ IV PRN (18:30)
[2016-11-11] MEDS ORDERED: FENTAnyl 50 MCG/ML VIAL IV PRN ×3 (18:30)
[2016-11-11] MEDS ORDERED: HYDROmorphONE (0.2 MG/ML) 10ML SYG IV PRN ×3 (18:30)
[2016-11-11] MEDS ORDERED: MEPERIDINE 25 MG INJ IV PRN (18:30)
[2016-11-11] MEDS ORDERED: EPHEDrine SULFATE 50 MG/5 ML SYG IV PRN (18:30)
[2016-11-11] MEDS ORDERED: hydrALAzine 20 MG INJ IV PRN (18:30)
[2016-11-11] MEDS ORDERED: SUGAMMADEX SODIUM 200 MG/2 ML VIAL IV ONE (18:31)
--- NOTE | 2016-11-11 18:55 | OPR ---
Date/Time of Note Date/Time of Note DATE: 11/11/16 TIME: 18:43 Operative Report Procedure Date: Nov 11, 2016 Preoperative Diagnosis Status post bilateral ureteral JJ stents, right ureteral stent proximal and in the upper ureter rather than in the kidney, distal left ureteral vaginal fistula. Postoperative Diagnosis Status post bilateral ureteral JJ stents, right ureteral stent proximal and in the upper ureter rather than in the kidney, distal left ureteral vaginal fistula. Operation Performed Cystoscopy, removal of bilateral ureteral JJ stents, bilateral retrograde pyelograms, insertion of left ureteral JJ stent, size 6 Angolan by 24 cm long Surgeon: ISIDORO BROWN MD Anesthesiologist: JANAY GATES MD Estimated Blood Loss: none Specimen: none Complications: no Pt Condition Post Procedure: stable Indications Status post bilateral ureteral JJ stents, right ureteral stent proximal and in the upper ureter rather than in the kidney, distal left ureteral vaginal fistula. Operative\Procedure Findings Status post bilateral ureteral JJ stents, right ureteral stent proximal and in the upper ureter rather than in the kidney, distal left ureteral vaginal fistula. Procedure Description The patient was brought to the operating room she was given general anesthesia. She was positioned in the lithotomy position. She was given 2 g of Ancef at the start of the procedure .The genital area was prepped and draped in the usual sterile manner. Fluoroscopy was done and spot films were taken before removal of the old JJ stents. #21 Angolan cystoscope sheath was then introduced into the bladder and urine collected from the bladder for culture and sensitivity. The distal end of both ureteral stents were identified. The right ureteral JJ stent was removed and the proximal end of that stent was not curling into the kidney but that was curling in the upper right ureter and did uncurl and come down easily. Then the same was done for the left side stent and that came out also easy. Then using a 10 Angolan cone-tip ureteral catheter a left retrograde pyelogram was done first and the contrast material went up to the kidney without a problem , there was very small contrast going out about 3 cm proximal to the ureterovesical junction on the left side. A retrograde pyelogram on the right side was also done and that showed the right ureter to be open and no extravasation but the right renal pelvis appeared to be dilated and there was right hydronephrosis. There was no ureteral obstruction. I repeated the left retrograde pyelogram to confirm the findings and since there was a small amount of contrast material coming out of the distal end of the left ureter I decided to insert a new left ureteral JJ stent. A 0.035 zip wire was then passed under fluoroscopy into the left ureter all the way up to the kidney and on that wire I advanced a 6 Angolan by 24 cm long JJ stent the proximal and good curl in the kidney and the distal end curled in the bladder. Spot films were taken. A 16 Angolan Kothari catheter was then inserted and connected to a drainage back. Patient tolerated the procedure well. ISIDORO BROWN MD Nov 11, 2016 18:55
[2016-11-11 19:20] LABS: ADD UMIC YES; UR ASCORBIC ACID NEGATIVE (NEGATIVE); UR BACTERIA FEW /HPF (NONE SEEN); UR BILIRUBIN (Dip) NEGATIVE (NEGATIVE); UR BLOOD (Dip) 3+ mg/dL (NEGATIVE); UR CLARITY SLIGHTLY CLOUDY (CLEAR); UR COLOR YELLOW (YELLOW); UR GLUCOSE (Dip) NEGATIVE (NEGATIVE); UR KETONES (Dip) NEGATIVE (NEGATIVE); UR LEUKOCYTE ESTERASE (Dip) 3+ Leu/ul (NEGATIVE); UR NITRITE (Dip) NEGATIVE (NEGATIVE); UR RBC 150 /HPF (0-5); UR SPECIFIC GRAVITY (Dip) 1.015 (1.003-1.030); UR TOTAL PROTEIN (Dip) 1+ mg/dl (NEGATIVE); UR UROBILINOGEN (Dip) NEGATIVE (NEGATIVE)
[2016-11-11] MEDS: TAMOXIFEN 10 MG TAB PO SCH (20:34)
[2016-11-12 00:10] VITALS: BP 118/73; RESP 20
[2016-11-12] MEDS: DEXTROSE 5%-0.45% NACL 1,000 ML IV SCH ×3 (05:32→15:57)
[2016-11-12] MEDS: PANTOPRAZOLE (EC) 40 MG TAB PO SCH (05:32)
[2016-11-12 05:33] LABS: BASOPHILS % 0.2 % (0.0-2.0); EOSINOPHILS % 0.1 % (0.0-7.0); HEMATOCRIT 34.8 % (37.0-47.0); HEMOGLOBIN 10.8 g/dl (12.0-16.0); LYMPHOCYTES # 1.8 10^3/ul (0.8-2.9); LYMPHOCYTES % 17.8 % (15.0-51.0); MEAN CORPUSCULAR HEMOGLOBIN 24.7 pg (29.0-33.0); MEAN CORPUSCULAR VOLUME 79.6 fl (82.0-101.0); MEAN PLATELET VOLUME 9.8 fl (7.4-10.4); MONOCYTE # 0.5 10^3/ul (0.3-0.9); MONOCYTES % 4.7 % (0.0-11.0); NEUTROPHILS % 76.6 % (39.0-77.0); PLATELET COUNT 343 10^3/UL (140-415); RED BLOOD COUNT 4.37 10^6/ul (4.20-5.40); RED CELL DISTRIBUTION WIDTH 13.6 % (11.5-14.5); WHITE BLOOD COUNT 10.2 10^3/ul (4.8-10.8)
[2016-11-12 05:54] LABS: CALCIUM 8.9 mg/dl (8.4-10.2); CREATININE 0.88 mg/dl (0.44-1.00); POTASSIUM 4.4 mmol/L (3.5-5.1)
[2016-11-12 08:00] VITALS: BP 119/77; PULSE 54; RESP 17
[2016-11-12] MEDS: METOPROLOL 50 MG TAB PO SCH ×2 (08:43→20:10)
[2016-11-12] MEDS: ACETAMINOPHEN 325 MG TAB PO PRN ×2 (08:45→15:57)
[2016-11-12] MEDS: ENOXAPARIN 30 MG/0.3 ML SYG SC SCH (08:47)
--- NOTE | 2016-11-12 12:42 | PN ---
Date/Time of Note Date/Time of Note DATE: 11/12/16 TIME: 12:36 Assessment/Plan VTE Prophylaxis VTE Prophylaxis Intervention: ambulation, SCD's Lines/Catheters IV [facility]ter Type (from [facility]): Peripheral IV Urinary Cath still in place: Yes Reason Cath still needed: urinary retention (Urological surgery) Assessment/Plan Chief Complaint/Hosp Course Right hydronephrosis, Left ureteral JJ stent in good position, The patient is a 51-year-old female who underwent laparoscopic hysterectomy in August and had bilateral ureteral JJ stents placed. The stents were removed yesterday and a new JJ stent was placed on the left side because there was a very small leak from the distal left ureter and we will keep the Kothari catheter in place to keep the bladder empty so no urine with reflux from the bladder into the stent and into the left ureter and therefore leaking. Since the patient is complaining of pain today and we do not have the results of the urine culture from surgery yesterday will observe her today and most likely will have her discharged tomorrow was a Kothari catheter and a leg bag and follow- up in the office. Problems: Subjective 24 Hr Interval Summary Free Text/Dictation Patient is status post cystoscopy removal of bilateral ureteral JJ stents, bilateral retrograde pyelograms and insertion of a new left ureteral JJ stent. Patient complains of pain in her left flank area when she urinates and that is normal because of the JJ stent. She also complains of urine coming out around the Kothari catheter and she most likely has bladder spasms. Urine culture from the operating room still pending Constitutional: no complaints Eyes: no complaints ENT: no complaints Respiratory: no complaints Cardiovascular: no complaints Gastrointestinal: no complaints Genitourinary: other (Kothari catheter is draining clear urine), No bleeding, No hematuria Musculoskeletal: no complaints Skin: no complaints Neurologic: no complaints Exam/Review of Systems Vital Signs Vitals Vital Signs Date Time Temp Pulse Resp B/P Pulse Ox O2 Delivery O2 Flow Rate FiO2 11/12/16 08:00 98.4 54 17 119/77 96 Room Air Intake and Output 11/11/16 11/11/16 11/12/16 15:00 23:00 07:00 Intake Total 1200 ml 2250 ml Output Total 450 ml 950 ml Balance 750 ml 1300 ml Exam Constitutional: alert, oriented Psych: no complaints Head: normocephalic Eyes: nl conjunctiva ENMT: nl external ears & nose Neck: supple Respiratory: normal air movement Gastrointestinal: non-tender Genitourinary - Female: other (Kothari catheter in place and draining clear urine ) Musculoskeletal: nl extremities to inspection Extremities: No calf tenderness, No edema Results Result Diagram: 11/12/16 0432 11/12/16 0432 Results 24 hrs Laboratory Tests Test 11/11/16 18:30 11/12/16 04:32 Urine Color YELLOW Urine Clarity SLIGHTLY CLOUDY A Urine pH 5.0 Urine Specific [place] 1.015 Urine Ketones NEGATIVE Urine Nitrite NEGATIVE Urine Bilirubin NEGATIVE Urine Urobilinogen NEGATIVE Urine Leukocyte Esterase 3+ H Urine Microscopic RBC 150 H Urine Microscopic WBC 89 H Urine Bacteria FEW A Urine Hemoglobin 3+ H Urine Glucose NEGATIVE Urine Total Protein 1+ H White Blood Count 10.2 # Red Blood Count 4.37 Hemoglobin 10.8 L Hematocrit 34.8 L Mean Corpuscular Volume 79.6 L Mean Corpuscular Hemoglobin 24.7 L Mean Corpuscular Hemoglobin Concent 31.0 L Red Cell Distribution Width 13.6 Platelet Count 343 Mean Platelet Volume 9.8 Neutrophils % 76.6 Lymphocytes % 17.8 Monocytes % 4.7 Eosinophils % 0.1 Basophils % 0.2 Nucleated Red Blood Cells % 0.0 Neutrophils # (Manual) 7.8 H Lymphocytes # 1.8 Monocytes # 0.5 Eosinophils # 0.0 Basophils # 0.0 Nucleated Red Blood Cells # 0.0 Sodium Level 146 H Potassium Level 4.4 Chloride Level 104 Carbon Dioxide Level 26 Anion Gap 20 H Blood Urea Nitrogen 9 Creatinine 0.88 Glucose Level 172 # Calcium Level 8.9 Medications Medications Current Medications Dextrose/Sodium Chloride (D5-1/2ns) 1,000 ml @ 75 mls/hr [id number] IV Last administered on 11/12/16 05:32; Admin Dose 75 MLS/HR; Start 11/06/16 at 23:40 Ondansetron HCl (Zofran Inj) 4 mg Q6H PRN IV NAUSEA AND/OR VOMITING Last administered on 11/10/16 18:11; Admin Dose 4 MG; Start 11/07/16 at 00:00 Acetaminophen (Tylenol Tab) 650 mg Q6H PRN PO PAIN LEVEL 1-3 OR FEVER Last administered on 11/12/16 08:45; Admin Dose 650 MG; Start 11/07/16 at 00:00 Acetaminophen/ Hydrocodone Bitart ([place] (5/325)) 1 tab Q6H PRN PO MODERATE PAIN LEVEL 4-6; Start 11/07/16 at 00:00 Morphine Sulfate (morphine) 2 mg Q4H PRN IV SEVERE PAIN LEVEL 7-10; Start 11/07 at 00:00 Docusate Sodium (Colace) 100 mg Q12H PRN PO CONSTIPATION Last administered on 22:57; Admin Dose 100 MG; Start 11/07/16 at 00:00 Magnesium Hydroxide (Milk Of Mag) 30 ml DAILY PRN PO CONSTIPATION; Start at 00:00 Bisacodyl (Dulcolax) 5 mg DAILY PRN PO CONSTIPATION; Start 11/07/16 at 00:00 Zolpidem Tartrate (Ambien) 5 mg QHS PRN PO SLEEP; Start 11/07/16 at 00:00 Enoxaparin Sodium (Lovenox) 30 mg DAILY SC Last administered on 11/12/16 08:47 ; Admin Dose 30 MG; Start 11/07/16 at 09:00 Tamoxifen Citrate (Nolvadex) 20 mg 21 PO Last administered on 11/11/16 20:34; Admin Dose 20 MG; Start 11/07/16 at 21:00 Metoprolol Tartrate (Lopressor) 50 mg BID PO Last administered on 11/12/16 08: 43; Admin Dose 50 MG; Start 11/07/16 at 21:00 Pantoprazole (Protonix Tab) 40 mg DAILY@06 PO Last administered on 11/12/16 05 :32; Admin Dose 40 MG; Start 11/09/16 at 15:00 ISIDORO BROWN MD Nov 12, 2016 12:42
--- NOTE | 2016-11-12 14:26 | RADRPT ---
PROCEDURE: RF Retrograde Pyelogram CLINICAL INDICATION: Cystoscopy, and removal of bilateral stents, retrograde pyelogram and inserti on of new left stent TECHNIQUE: 13 portable images taken at surgery were submitted. COMPARISON: None available FINDINGS: The studio coordinator image demonstrates the presence of bilateral double J ureteral stents. Contrast was intro duced into the right ureter through a cystoscope. There was moderate pelvocaliectasis with the uret er normal in caliber and no distinct intrinsic filling defect evident. Contrast was then introduced into the left ureter which appeared normal in caliber. The left pelvocaliceal system was not dilat ed and no intrinsic filling defects were evident. There is a small focus of irregularity at the dist al left ureter. Subsequently a left ureteral stent was placed. The procedure was performed by Dr. Ambrosio ocampo. Total fluoro time was 166.8 seconds. IMPRESSION: Removal of bilateral stents, bilateral retrograde pyelograms demonstrating moderate righ t pelvocaliectasis with no discrete intrinsic filling defect evident. The left retrograde demonstra lilia no dilatation of the left pelvocaliceal system are ureter but slight irregularity at the distal left ureter. A left ureteral stent was subsequently placed. Physician Bao Date Time Electronically viewed and signed by Physician Bao on 11/12/2016 14:26 /
[2016-11-12 14:47] VITALS: BP 134/82; RESP 16
--- NOTE | 2016-11-12 16:59 | PN ---
Date/Time of Note Date/Time of Note DATE: 11/12/16 TIME: 16:48 Assessment/Plan VTE Prophylaxis VTE Prophylaxis Intervention: SCD's Lines/Catheters IV Catheter Type (from [facility]): Peripheral IV Urinary Cath still in place: Yes Reason Cath still needed: urinary retention Assessment/Plan Chief Complaint/Hosp Course Patient complains of pain, Good output with Kothari. 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 S/p removal of bilateral JJ stents and new JJ placement on left side. Dr. Austin is following in urology consultation. Continue Kothari. -Clementina glabrata urinary tract infection, continue Diflucan. -Status post laparoscopic hysterectomy and bilateral salpingo-oophorectomy in August 2016 - Hx of Left breast cancer status post mastectomy with tissue accountant supervisor placement. Patient is currently continued on tamoxifen. Further recommendations based on clinical course. Plan of care discussed with Dr. Malik. Problems: Exam/Review of Systems Vital Signs Vitals Vital Signs Date Time Temp Pulse Resp B/P Pulse Ox O2 Delivery O2 Flow Rate FiO2 11/12/16 14:47 97.7 71 16 134/82 98 11/12/16 08:00 Room Air Intake and Output 11/11/16 11/11/16 11/12/16 14:59 22:59 06:59 Intake Total 1200 ml 2250 ml Output Total 450 ml 950 ml Balance 750 ml 1300 ml Exam Constitutional: alert, oriented Respiratory: normal air movement Cardiovascular: nl pulses Gastrointestinal: non-tender, soft Genitourinary - Female: other (Kothari catheter) Extremities: normal pulses Neurological: nl mental status Skin: nl turgor Status post left mastectomy Results Result Diagram: 11/12/16 0432 11/12/16 0432 Results 24 hrs Laboratory Tests Test 11/11/16 18:30 11/12/16 04:32 Urine Color YELLOW Urine Clarity SLIGHTLY CLOUDY A Urine pH 5.0 Urine Specific [place] 1.015 Urine Ketones NEGATIVE Urine Nitrite NEGATIVE Urine Bilirubin NEGATIVE Urine Urobilinogen NEGATIVE Urine Leukocyte Esterase 3+ H Urine Microscopic RBC 150 H Urine Microscopic WBC 89 H Urine Bacteria FEW A Urine Hemoglobin 3+ H Urine Glucose NEGATIVE Urine Total Protein 1+ H White Blood Count 10.2 # Red Blood Count 4.37 Hemoglobin 10.8 L Hematocrit 34.8 L Mean Corpuscular Volume 79.6 L Mean Corpuscular Hemoglobin 24.7 L Mean Corpuscular Hemoglobin Concent 31.0 L Red Cell Distribution Width 13.6 Platelet Count 343 Mean Platelet Volume 9.8 Neutrophils % 76.6 Lymphocytes % 17.8 Monocytes % 4.7 Eosinophils % 0.1 Basophils % 0.2 Nucleated Red Blood Cells % 0.0 Neutrophils # (Manual) 7.8 H Lymphocytes # 1.8 Monocytes # 0.5 Eosinophils # 0.0 Basophils # 0.0 Nucleated Red Blood Cells # 0.0 Sodium Level 146 H Potassium Level 4.4 Chloride Level 104 Carbon Dioxide Level 26 Anion Gap 20 H Blood Urea Nitrogen 9 Creatinine 0.88 Glucose Level 172 # Calcium Level 8.9 Medications Medications Current Medications Dextrose/Sodium Chloride (D5-1/2ns) 1,000 ml @ 75 mls/hr [id number] IV Last administered on 11/12/16 15:57; Admin Dose 75 MLS/HR; Start 11/06/16 at 23:40 Ondansetron HCl (Zofran Inj) 4 mg Q6H PRN IV NAUSEA AND/OR VOMITING Last administered on 11/10/16 18:11; Admin Dose 4 MG; Start 11/07/16 at 00:00 Acetaminophen (Tylenol Tab) 650 mg Q6H PRN PO PAIN LEVEL 1-3 OR FEVER Last administered on 11/12/16 15:57; Admin Dose 650 MG; Start 11/07/16 at 00:00 Acetaminophen/ Hydrocodone Bitart ([place] (5/325)) 1 tab Q6H PRN PO MODERATE PAIN LEVEL 4-6; Start 11/07/16 at 00:00 Morphine Sulfate (morphine) 2 mg Q4H PRN IV SEVERE PAIN LEVEL 7-10; Start 11/07 at 00:00 Docusate Sodium (Colace) 100 mg Q12H PRN PO CONSTIPATION Last administered on 22:57; Admin Dose 100 MG; Start 11/07/16 at 00:00 Magnesium Hydroxide (Milk Of Mag) 30 ml DAILY PRN PO CONSTIPATION; Start at 00:00 Bisacodyl (Dulcolax) 5 mg DAILY PRN PO CONSTIPATION; Start 11/07/16 at 00:00 Zolpidem Tartrate (Ambien) 5 mg QHS PRN PO SLEEP; Start 11/07/16 at 00:00 Enoxaparin Sodium (Lovenox) 30 mg DAILY SC Last administered on 11/12/16 08:47 ; Admin Dose 30 MG; Start 11/07/16 at 09:00 Tamoxifen Citrate (Nolvadex) 20 mg 21 PO Last administered on 11/11/16 20:34; Admin Dose 20 MG; Start 11/07/16 at 21:00 Metoprolol Tartrate (Lopressor) 50 mg BID PO Last administered on 11/12/16 08: 43; Admin Dose 50 MG; Start 11/07/16 at 21:00 Pantoprazole (Protonix Tab) 40 mg DAILY@06 PO Last administered on 11/12/16 05 :32; Admin Dose 40 MG; Start 11/09/16 at 15:00 Al Hydrox/Mg Hydrox/Simethicone (Mag-Al Plus) 30 ml Q6H PRN PO GASTROINTESTINAL UPSET; Start 11/12/16 at 17:00 CHIOMA LAGUERRE Nov 12, 2016 16:58
[2016-11-12] MEDS: AL HYDROX/MG HYDROX/SIMETH 30 ML CUP PO PRN ×2 (17:04→20:41)
[2016-11-12 19:25] VITALS: BP_SYST 130; BP_SYST 138; BP_DIAS 70; BP_DIAS 78; RESP 20
[2016-11-12] MEDS: TAMOXIFEN 10 MG TAB PO SCH (20:12)
[2016-11-13 02:20] VITALS: BP 122/77; RESP 18
[2016-11-13] MEDS: PANTOPRAZOLE (EC) 40 MG TAB PO SCH (05:20)
[2016-11-13] MEDS: ACETAMINOPHEN 325 MG TAB PO PRN ×2 (05:23→15:10)
[2016-11-13 05:27] LABS: BASOPHILS % 0.4 % (0.0-2.0); EOSINOPHILS # 0.2 10^3/ul (0.0-0.5); EOSINOPHILS % 2.3 % (0.0-7.0); HEMATOCRIT 33.6 % (37.0-47.0); HEMOGLOBIN 10.4 g/dl (12.0-16.0); LYMPHOCYTES # 2.6 10^3/ul (0.8-2.9); LYMPHOCYTES % 35.2 % (15.0-51.0); MEAN CORPUSCULAR HEMOGLOBIN 24.6 pg (29.0-33.0); MEAN CORPUSCULAR VOLUME 79.4 fl (82.0-101.0); MEAN PLATELET VOLUME 9.9 fl (7.4-10.4); MONOCYTE # 0.6 10^3/ul (0.3-0.9); MONOCYTES % 7.9 % (0.0-11.0); NEUTROPHILS % 53.5 % (39.0-77.0); PLATELET COUNT 303 10^3/UL (140-415); RED BLOOD COUNT 4.23 10^6/ul (4.20-5.40); RED CELL DISTRIBUTION WIDTH 13.8 % (11.5-14.5); WHITE BLOOD COUNT 7.5 10^3/ul (4.8-10.8)
[2016-11-13 05:50] LABS: CALCIUM 8.7 mg/dl (8.4-10.2); CREATININE 0.84 mg/dl (0.44-1.00); POTASSIUM 4.1 mmol/L (3.5-5.1)
[2016-11-13 07:37] VITALS: BP 128/78; RESP 18
[2016-11-13] MEDS: METOPROLOL 50 MG TAB PO SCH (08:08)
[2016-11-13] MEDS: ENOXAPARIN 30 MG/0.3 ML SYG SC SCH (08:11)
--- NOTE | 2016-11-13 08:46 | PN ---
Date/Time of Note Date/Time of Note DATE: 11/13/16 TIME: 08:39 Assessment/Plan VTE Prophylaxis VTE Prophylaxis Intervention: ambulation Lines/Catheters IV Catheter Type (from [facility]): Saline Lock Urinary Cath still in place: Yes Reason Cath still needed: other (indicate) (Patient needs to have the Kothari catheter to keep the bladder empty and avoid reflux into the JJ stent and the left ureter to avoid any leakage) Assessment/Plan Chief Complaint/Hosp Course Left ureteral JJ stent in good position, The patient is a 51-year-old female who underwent laparoscopic hysterectomy in August and had bilateral ureteral JJ stents placed. The stents were removed and a new JJ stent was placed on the left side because there was a very small leak from the distal left ureter and we will keep the Kothari catheter in place to keep the bladder empty so no urine will reflux from the bladder into the stent and into the left ureter and therefore leaking. Urine culture did not show any infection. The patient may be discharged home with a Kothari catheter to a leg bag and she should follow-up in the office in about 10-14 days. I have requested senior case manager to obtain on authorization for that. Before that the patient stay on antibiotic. Bactrim DS 1 tablet twice a day and Diflucan 100 milligrams p.o. daily for about a week Problems: Subjective 24 Hr Interval Summary Free Text/Dictation Patient states that she has some pain in the left flank area and abdominal distention. She does have bowel movements and she did not report any leakage around the catheter Constitutional: no complaints Eyes: no complaints ENT: no complaints Respiratory: no complaints Cardiovascular: no complaints Gastrointestinal: no complaints Genitourinary: No bleeding, No hematuria Exam/Review of Systems Vital Signs Vitals Vital Signs Date Time Temp Pulse Resp B/P Pulse Ox O2 Delivery O2 Flow Rate FiO2 11/13/16 07:37 97.9 69 18 128/78 97 11/12/16 08:00 Room Air Intake and Output 11/12/16 11/12/16 11/13/16 15:00 23:00 07:00 Intake Total 1895 ml 1500 ml Output Total 1250 ml 2100 ml Balance 645 ml -600 ml Exam Constitutional: alert, oriented Psych: no complaints Eyes: nl conjunctiva ENMT: nl external ears & nose Neck: supple Respiratory: normal air movement Gastrointestinal: soft Genitourinary - Female: other (Kothari draining clear urine) Results Result Diagram: 11/13/16 0501 11/13/16 0501 Results 24 hrs Laboratory Tests Test 11/13/16 05:01 White Blood Count 7.5 # Red Blood Count 4.23 Hemoglobin 10.4 L Hematocrit 33.6 L Mean Corpuscular Volume 79.4 L Mean Corpuscular Hemoglobin 24.6 L Mean Corpuscular Hemoglobin Concent 31.0 L Red Cell Distribution Width 13.8 Platelet Count 303 Mean Platelet Volume 9.9 Neutrophils % 53.5 Lymphocytes % 35.2 Monocytes % 7.9 Eosinophils % 2.3 Basophils % 0.4 Nucleated Red Blood Cells % 0.0 Neutrophils # (Manual) 4.0 Lymphocytes # 2.6 Monocytes # 0.6 Eosinophils # 0.2 Basophils # 0.0 Nucleated Red Blood Cells # 0.0 Sodium Level 148 H Potassium Level 4.1 Chloride Level 107 Carbon Dioxide Level 27 Anion Gap 18 H Blood Urea Nitrogen 14 Creatinine 0.84 Glucose Level 107 # Calcium Level 8.7 Urine culture no growth in 24 hours Medications Medications Current Medications Ondansetron HCl (Zofran Inj) 4 mg Q6H PRN IV NAUSEA AND/OR VOMITING Last administered on 11/10/16 18:11; Admin Dose 4 MG; Start 11/07/16 at 00:00 Acetaminophen (Tylenol Tab) 650 mg Q6H PRN PO PAIN LEVEL 1-3 OR FEVER Last administered on 11/13/16 05:23; Admin Dose 650 MG; Start 11/07/16 at 00:00 Acetaminophen/ Hydrocodone Bitart ([place] (5/325)) 1 tab Q6H PRN PO MODERATE PAIN LEVEL 4-6; Start 11/07/16 at 00:00 Morphine Sulfate (morphine) 2 mg Q4H PRN IV SEVERE PAIN LEVEL 7-10; Start 11/07 at 00:00 Docusate Sodium (Colace) 100 mg Q12H PRN PO CONSTIPATION Last administered on 22:57; Admin Dose 100 MG; Start 11/07/16 at 00:00 Magnesium Hydroxide (Milk Of Mag) 30 ml DAILY PRN PO CONSTIPATION; Start at 00:00 Bisacodyl (Dulcolax) 5 mg DAILY PRN PO CONSTIPATION; Start 11/07/16 at 00:00 Zolpidem Tartrate (Ambien) 5 mg QHS PRN PO SLEEP; Start 11/07/16 at 00:00 Enoxaparin Sodium (Lovenox) 30 mg DAILY SC Last administered on 11/13/16 08:11 ; Admin Dose 30 MG; Start 11/07/16 at 09:00 Tamoxifen Citrate (Nolvadex) 20 mg 21 PO Last administered on 11/12/16 20:12; Admin Dose 20 MG; Start 11/07/16 at 21:00 Metoprolol Tartrate (Lopressor) 50 mg BID PO Last administered on 11/13/16 08: 08; Admin Dose 50 MG; Start 11/07/16 at 21:00 Pantoprazole (Protonix Tab) 40 mg DAILY@06 PO Last administered on 11/13/16 05 :20; Admin Dose 40 MG; Start 11/09/16 at 15:00 Al Hydrox/Mg Hydrox/Simethicone (Mag-Al Plus) 30 ml Q6H PRN PO GASTROINTESTINAL UPSET Last administered on 11/12/16 20:41; Admin Dose 30 ML; Start 11/12/16 at 17:00 ISIDORO BROWN MD Nov 13, 2016 08:46
[2016-11-13 14:32] VITALS: BP 131/94; RESP 16
[2016-11-13] MEDS ORDERED: UDMYL PO (14:34)
[2016-11-13] MEDS ORDERED: OMEP20CA16 PO (14:34)
[2016-11-13] MEDS ORDERED: FLUC100T PO (14:34)
[2016-11-13] MEDS ORDERED: SULF1TAB31 PO (14:34)
--- NOTE | 2016-11-13 18:33 | DS ---
Date/Time of Note Date/Time of Note DATE: 11/13/16 TIME: 18:30 Discharge Summary Admission/Discharge Info Admit Date/Time Nov 06, 2016 at 19:56 Discharge Date/Time Nov 13, 2016 at 15:25 Patient Condition: Stable Hx of Present Illness The patient is a 51-year-old female who underwent laparoscopic hysterectomy in August and had bilateral ureteral JJ stents placed. She has been having pain and nausea and incontinence of the urine however she is not certain whether the urine is coming from the vagina or from the urethra as she has urgency and urgency incontinence and that could be also irritation of her bladder by the JJ stents. 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 S/p removal of bilateral JJ stents and new JJ placement on left side. Dr. Austin is following in urology consultation. Continue Kothari. -Clementina glabrata urinary tract infection, continue Diflucan. -Status post laparoscopic hysterectomy and bilateral salpingo-oophorectomy in August 2016 - Hx of Left breast cancer status post mastectomy with tissue cloth mercerizer back tender placement. Patient is currently continued on tamoxifen. Home Meds Active Scripts Fluconazole* (Diflucan*) 100 Mg Tablet, 100 MG PO DAILY for 7 Days, TAB Prov:CHIOMA LAGUERRE 11/13/16 Sulfamethoxazole/Trimethoprim* (Bactrim Ds* Tablet) 1 Each Tablet, 1 TAB PO BID for 7 Days, TAB Prov:CHIOMA LAGUERRE 11/13/16 Magaldrate/Simethicone* (Mag-Al Plus Suspension*) 30 Ml Oral.susp, 30 ML PO Q6H Y for GASTROINTESTINAL UPSET, #1 BOTTLE Prov:CHIOMA LAGUERRE 11/13/16 Omeprazole* (Omeprazole*) 20 Mg Capsule.dr, 20 MG PO DAILY, #30 CAP Prov:CHIOMA LAGUERRE 11/13/16 Reported Medications Acetaminophen* (Acetaminophen*) 500 MG Extra Strength Tablet, 500 MG PO Q4H Y for PAIN AND OR ELEVATED TEMP, TAB 11/06/16 Hydrocodone/Acetaminophen ([place] 5-325 Tablet) 1 Each Tablet, 1 EACH PO, TAB 11/06/16 Tamoxifen Citrate* (Tamoxifen Citrate*) 20 Mg Tab, 20 MG PO DAILY, TAB 08/21/16 Metoprolol Tartrate* (Lopressor*) 50 Mg Tab, 50 MG PO BID, #60 TAB 05/07/16 Discontinued Reported Medications Levofloxacin* (Levofloxacin*) 750 Mg Tablet, 750 MG PO DAILY, TAB 11/06/16 Metronidazole* (Metronidazole*) 250 Mg Tablet, 250 MG PO Q8, TAB 11/06/16 Discontinued Scripts Ciprofloxacin Hcl* (Ciprofloxacin Hcl*) 500 Mg Tablet, 500 MG PO BID for 10 Days , TAB Prov:SLICK BLACKMON PA-C 09/03/16 Follow-up Plan Follow-up with Dr. Austin in 10 days follow-up with Dr. Julia Acevedo in 7 days Primary Care Provider Julian Barreto Pending Labs Laboratory Tests Test 11/13/16 05:01 White Blood Count 7.510^3/ul (4.8-10.8) Red Blood Count 4.2310^6/ul (4.20-5.40) Hemoglobin 10.4g/dl (12.0-16.0) Hematocrit 33.6% (37.0-47.0) Mean Corpuscular Volume 79.4fl (82.0-101.0) Mean Corpuscular Hemoglobin 24.6pg (29.0-33.0) Mean Corpuscular Hemoglobin Concent 31.0g/dl (32.0-37.0) Red Cell Distribution Width 13.8% (11.5-14.5) Platelet Count 71720^3/UL (140-415) Mean Platelet Volume 9.9fl (7.4-10.4) Neutrophils % 53.5% (39.0-77.0) Lymphocytes % 35.2% (15.0-51.0) Monocytes % 7.9% (0.0-11.0) Eosinophils % 2.3% (0.0-7.0) Basophils % 0.4% (0.0-2.0) Nucleated Red Blood Cells % 0.0/100WBC (0.0-0.0) Neutrophils # (Manual) 4.010^3/ul (1.7-7.5) Lymphocytes # 2.610^3/ul (0.8-2.9) Monocytes # 0.610^3/ul (0.3-0.9) Eosinophils # 0.210^3/ul (0.0-0.5) Basophils # 0.010^3/ul (0.0-0.1) Nucleated Red Blood Cells # 0.010^3/ul (0.0-0.0) Sodium Level 148mmol/L (135-144) Potassium Level 4.1mmol/L (3.5-5.1) Chloride Level 107mmol/L (97-110) Carbon Dioxide Level 27mmol/L (21-31) Anion Gap 18 (8-16) Blood Urea Nitrogen 14mg/dl (7-20) Creatinine 0.84mg/dl (0.44-1.00) Glucose Level 107mg/dl (70-220) Calcium Level 8.7mg/dl (8.4-10.2) CHIOMA LAGUERRE Nov 13, 2016 18:33
== END 2016-11-13 15:25 | disposition home or self-care (01) | DRG 699 ==
LOC: FTE 18:24 → MS1 19:56
PROVIDERS: ADMIT Internal Medicine; ATTEND Internal Medicine
PROC: 0T778DZ Dilation of Left Ureter with Intraluminal Device, Via Natural or Artificial Opening Endoscopic (ICD-10-PCS; 2016-11-11)
PROC: BT1FYZZ Fluoroscopy of Left Kidney, Ureter and Bladder using Other Contrast (ICD-10-PCS; 2016-11-11)
PROC: 0TP98DZ Removal of Intraluminal Device from Ureter, Via Natural or Artificial Opening Endoscopic (ICD-10-PCS; principal; 2016-11-11 17:30)
DX: T83.122A Displacement of indwelling ureteral stent, initial encounter (principal); N82.1 Other female urinary-genital tract fistulae; N13.30 Unspecified hydronephrosis; I10 Essential (primary) hypertension; B37.49 Other urogenital candidiasis; N39.41 Urge incontinence; Y84.6 Urinary catheterization as the cause of abnormal reaction of the patient, or of later complication, without mention of misadventure at the time of the procedure; Y92.019 Unspecified place in single-family (private) house as the place of occurrence of the external cause; Z90.12 Acquired absence of left breast and nipple; Z90.710 Acquired absence of both cervix and uterus; Z85.3 Personal history of malignant neoplasm of breast; Z87.891 Personal history of nicotine dependence
CPT/HCPCS: 36415; 71010; 74430; 80048; 80053; 81001; 82962; 83690; 85025; 85610; 87086; 93005; 96374; 96375; C2617; J0690; J1100; J1170; J1650; J1885; J2250; J2405; J2543; J2765; J3010; J7030; J7042; Q9967

== ENCOUNTER 2018-07-10 09:10 | Day surgery (SDC) | payer OTHER ==
[~2018-07-10] VITALS: Ht 157.5 cm; Wt 86.6 kg
[~2018-07-10 09:10] MED LIST changes: +ACET-141 PO; -CIPR500T4 PO; +FLUC100T PO; +HYDR-4011 PO; +OMEP20CA16 PO; +SULF1TAB31 PO; +UDMYL PO
[2018-07-10 10:20] VITALS: Ht 157.5 cm; Wt 86.6 kg
[2018-07-10] MEDS ORDERED: ATOR40TA68 PO (10:31)
[2018-07-10] MEDS ORDERED: LISI40TA3 PO (10:31)
[2018-07-10] MEDS ORDERED: METF500T3 PO (10:31)
[2018-07-10] MEDS ORDERED: HYDR25TA6 PO (10:31)
[2018-07-10 11:03] VITALS: BP 129/68; PULSE 67; RESP 20
--- NOTE | 2018-07-10 11:36 | PREAC ---
Date/Time of Note Date/Time of Note DATE: 07/10/18 TIME: 11:34 Anesthesia Eval and Record Evaluation Time Pre-Procedure Interview DATE: 07/10/18 TIME: 11:34 Age 53 Sex female NPO: 8 hrs Preoperative diagnosis abdominal pain, constipation Planned procedure colonoscopy Past Medical History Past Medical History: Includes (history of breast cancer) Cardio: HTN, Dyslipidemia GI: Obesity Psych: Anxiety Surgery & Anesthesia Issues No known issue Meds Anticoagulation: No Beta Reyna within 24 hr: Yes Reason Beta Reyna not given: Bradycarida, Hypotension Reported Medications Atorvastatin* (Atorvastatin*) 40 Mg Tablet, 10 MG PO QHS, #30 TAB 07/10/18 Hydrochlorothiazide* (Hydrochlorothiazide*) 25 Mg Tab, 25 MG PO DAILY, #30 TAB 07/10/18 Lisinopril* (Lisinopril*) 40 Mg Tablet, 40 MG PO DAILY, #30 TAB 07/10/18 Metformin Hcl* (Metformin Hcl* ER) 500 Mg Tab.sr.24h, 500 MG PO DAILY, #30 TAB 07/10/18 Tamoxifen Citrate* (Tamoxifen Citrate*) 20 Mg Tab, 20 MG PO DAILY, TAB 08/21/16 Metoprolol Tartrate* (Lopressor*) 50 Mg Tab, 50 MG PO BID, #60 TAB 05/07/16 Discontinued Reported Medications Acetaminophen* (Acetaminophen*) 500 MG Extra Strength Tablet, 500 MG PO Q4H PRN for PAIN AND OR ELEVATED TEMP, TAB 11/06/16 Hydrocodone/Acetaminophen ([place] 5-325 Tablet) 1 Each Tablet, 1 EACH PO, TAB 11/06/16 Discontinued Scripts Fluconazole* (Diflucan*) 100 Mg Tablet, 100 MG PO DAILY for 7 Days, TAB Prov:CHIOMA LAGUERRE 11/13/16 Sulfamethoxazole/Trimethoprim* (Bactrim Ds* Tablet) 1 Each Tablet, 1 TAB PO BID for 7 Days, TAB Prov:CHIOMA LAGUERRE 11/13/16 Magaldrate/Simethicone* (Mag-Al Plus Suspension*) 30 Ml Oral.susp, 30 ML PO Q6H PRN for GASTROINTESTINAL UPSET, #1 BOTTLE Prov:CHIOMA LAGUERRE 11/13/16 Omeprazole* (Omeprazole*) 20 Mg Capsule.dr, 20 MG PO DAILY, #30 CAP Prov:CHIOMA LAGUERRE 11/13/16 Meds reviewed: Yes Allergies Coded Allergies: No Known Allergy (Unverified , 08/21/16) Allergies Reviewed: Yes Labs/Studies Labs Reviewed: Reviewed by anesthesiologist test: Negative Pre-procedure Exam Last vitals Vital Signs Date Temp Pulse Resp B/P (MAP) Pulse Ox O2 O2 Flow FiO2 Time Delivery Rate 07/10/18 97.1 67 20 129/68 98 Room Air 11:03 (88) Airway: Adequate mouth opening, Adequate thyromental dist Mallampati: Mallampati II Teeth: Normal Lung: Normal Heart: Normal ASA Physical Status ASA physical status: 2 Emergency: None Planned Anesthetic General/MAC: Mask Planned Pain Management Parenteral pain med Pre-operative Attestations Prior to commencing anesthesia and surgery, the patient was re-evaluated, there was verification of: *The patient's identity *The results of appropriate recent lab work and preoperative vital signs *The above evaluation not changing prior to induction *Anesthetic plan, risk benefits, alternative and complications discussed with patient/family; questions answered; patient/family understands, accepts and wishes to proceed. Certified Credit Counselor used ARIANA ALONZO MD Jul 10, 2018 11:36
[2018-07-10] MEDS ORDERED: LIDOCAINE 2% (SDV) 5 ML INJ ONE (11:39)
[2018-07-10] MEDS ORDERED: PROPOFOL 40 ML ONE (11:39)
[2018-07-10] MEDS ORDERED: MIDAZOLAM 1 MG/ML 2 ML INJ ONE (11:39)
[2018-07-10] MEDS ORDERED: ONDANSETRON 4 MG INJ IV PRN (12:00)
[2018-07-10 12:50] VITALS: BP 119/69; RESP 18
--- NOTE | 2018-07-10 12:55 | PAC ---
Date/Time of Note Date/Time of Note DATE: 07/10/18 TIME: 12:55 Post-Anesthesia Notes Post-Anesthesia Note Last documented vital signs Vital Signs Date Temp Pulse Resp B/P (MAP) Pulse Ox O2 O2 Flow FiO2 Time Delivery Rate 07/10/18 97.1 67 20 129/68 98 Room Air 11:03 (88) Activity: WNL Respiratory function: WNL Cardiovascular function: WNL Mental status: Baseline Pain reasonably controlled: Yes Hydration appropriate: Yes Nausea/Vomiting absent: Yes Comments BP:120/65 HR: 67 RR: 15 T: 98 SaO2: 98% ARIANA ALONZO MD Jul 10, 2018 12:55
== END 2018-07-10 15:21 | disposition home or self-care (01) ==
LOC: GIL 09:10
PROVIDERS: ATTEND Internal Medicine Gastroenterology
DX: Z12.11 Encounter for screening for malignant neoplasm of colon (principal); K29.70 Gastritis, unspecified, without bleeding; K20.9 Esophagitis, unspecified; K64.1 Second degree hemorrhoids; I10 Essential (primary) hypertension
CPT/HCPCS: 43239; 45378; 82962; 88305; 88312; 88313; J2250; Z7610